=== PATIENT | female | born 1985 | race Caucasian/White ===

== ENCOUNTER 2016-05-31 18:13 | Emergency (ER) | payer MEDICAID ==
[2013-06-11 13:09] VITALS: BMI 27.4
[2016-05-31 18:52] LABS: BASOPHILS 0.1 % (0.0-2.0); EOSINOPHILS 0.1 % (0-7); HEMATOCRIT 37.7 % (36.0-48.0); HEMOGLOBIN 13.2 g/dL (12-16); IMMATURE GRANULOCYTES 0.4 % (0-5); LYMPHOCYTES 15.4 % (15-50); MCH 32.6 pg (26.0-34.0); MCV 93.1 fL (80.0-100.0); MONOCYTES 7.3 % (2-11); NEUTROPHILS 76.7 % (40-80); PLATELET COUNT 242 10x3/uL (130-400); RBC 4.05 10x6/uL (4.00-5.40); RDW 13.7 % (11.5-14.5); WBC 19.8 10x3/uL (4.8-10.8)
[2016-05-31 19:10] LABS: ALBUMIN 3.5 g/dL (3.4-5.0); ALKALINE PHOSPHATASE 107 U/L (46-116); ALT (SGPT) 152 U/L (10-68); BILIRUBIN - TOTAL 0.21 mg/dL (0.2-1.3); CALC OSMOLALITY 285 mosm/kg (275-300); CALCIUM 8.5 mg/dL (8.5-10.1); CARBON DIOXIDE 24.8 mmol/L (21.0-32.0); CHLORIDE - SERUM 108 mmol/L (98-107); CREATININE - SERUM 0.8 mg/dL (0.6-1.3); GLUCOSE 114 mg/dL (74-106); POTASSIUM - SERUM 3.9 mmol/L (3.5-5.1); PROTEIN - SERUM 6.5 g/dL (6.4-8.2); SODIUM 144 mmol/L (136-145); UREA NITROGEN 8 mg/dL (7-18); eGFR NON AFRICAN AMERICAN 89 mL/min (90-120)
[2016-05-31 19:13] LABS: TROPONIN-I < 0.017 ng/mL (0.000-0.060)
[2016-06-02 12:57] VITALS: BMI 32.6
== END 2016-05-31 21:31 | disposition home or self-care (01) ==
LOC: D.ER 18:13
PROVIDERS: Emergency Medicine
DX: R06.00 Dyspnea, unspecified (principal); F17.200 Nicotine dependence, unspecified, uncomplicated

== ENCOUNTER 2016-06-02 12:31 | Observation (INO) | payer MEDICAID ==
[~2016-06-02] VITALS: Ht 165.1 cm; Wt 89.1 kg
--- NOTE | 2016-06-02 08:30 | NUR ---
REC'D PATIENT FROM ALEXANDR OLSEN. PATIENT LYING IN BED IN SEMI FOWLERS. IS IN THE ROOM WITH. IS WANTING TO STAY THE NIGHT WITH HER. ALERT AND ORIENTED X4. SPEECH CLEAR AND APPROPRIATE. PAIN @ A 7/10 DUE TO MENTRUAL CRAMPS. DENIES HEARING AND VISION PROBLEMS @ THIS TIME. MUCUS MEMBRANES PINK AND MOIST. LUNGS DIMISHED IN LLL, RUL, AND SERGIO. ABD SOFT NON TENDER TO TOUCH. STATED LAST BM WAS 06/02/16. DENIES PAINFULL VOIDING. BLADDER NON-PALPABLE. UPPER AND LOWER EXTREMITIES FULL ROM. MUSCLE STRENGH 5/5. SKIN WARM, DRY, AND INTACT. HAS A 22G TO RIGHT HAND RUNNING @ 100ML AND IS PATENT. INTRUCTED PATIENT TO CALL IF NEEDED ANYTHING. PATIENT VERBALIZED UNDERSTANDING. BED LOW, LOCKED, CALL LIGHT IN REACH.
--- NOTE | 2016-06-02 12:50 | NUR ---
RECEIVED TO ROOM 2[address] FROM DIRECT ADMIT DR. GALVAN'S OFFICE. A/O X3. FAMILY AT BEDSIDE. SKIN INTACT WITHOUT REDNESS. LUNGS ARE VERY DIMINISHED TO RIGHT LOBES. REPORTS PRODUCTIVE COUGH WITH GRAYISH SPUTUM. DENIES NEEDS.
[2016-06-02] MEDS ORDERED: ADDERALL 20 MG20 M1 PO (12:53)
[2016-06-02] MEDS ORDERED: KLONOPIN1 MG PO (12:54)
[2016-06-02 12:57] VITALS: BP 142/93; Ht 165.1 cm; Wt 89.1 kg
--- NOTE | 2016-06-02 13:00 | NUR ---
IV SITED TO RIGHT HAND AFTER 4 ATTEMPTS WITH 22G. PATIENT TOLERATED WELL WITH FEW C/O PAIN OR DISCOMFORT.
[2016-06-02 13:17] LABS: BASOPHILS 0.1 % (0.0-2.0); EOSINOPHILS 0 % (0-7); HEMATOCRIT 36.5 % (36.0-48.0); HEMOGLOBIN 12.8 g/dL (12-16); IMMATURE GRANULOCYTES 0.7 % (0-5); LYMPHOCYTES 20.5 % (15-50); MCH 32.2 pg (26.0-34.0); MCHC 35.1 g/dL (31.0-37.0); MCV 91.9 fL (80.0-100.0); MONOCYTES 8.6 % (2-11); NEUTROPHILS 70.1 % (40-80); PLATELET COUNT 235 10x3/uL (130-400); RBC 3.97 10x6/uL (4.00-5.40); RDW 13.5 % (11.5-14.5); WBC 18.4 10x3/uL (4.8-10.8)
[2016-06-02 13:30] LABS: ALBUMIN 3.2 g/dL (3.4-5.0); ALKALINE PHOSPHATASE 85 U/L (46-116); ALT (SGPT) 134 U/L (10-68); CALC OSMOLALITY 275 mosm/kg (275-300); CARBON DIOXIDE 24.1 mmol/L (21.0-32.0); CHLORIDE - SERUM 106 mmol/L (98-107); CREATININE - SERUM 0.7 mg/dL (0.6-1.3); GLUCOSE 88 mg/dL (74-106); PROTEIN - SERUM 6.4 g/dL (6.4-8.2); SODIUM 140 mmol/L (136-145); UREA NITROGEN 7 mg/dL (7-18); eGFR NON AFRICAN AMERICAN > 90 mL/min (90-120)
[2016-06-02 13:32] LABS: POTASSIUM - SERUM 3.3 mmol/L (3.5-5.1)
--- NOTE | 2016-06-02 14:00 | NUR ---
ATE ALL OF LUNCH TRAY SERVED IN ROOM. DNEIES NEEDS.
--- NOTE | 2016-06-02 15:40 | NUR ---
Patient Name: ANJALI SAAVEDRA Admission Status: Elective Accout number: [id number] Admission Date: 06-02-2016 : 1985 Admission Diagnosis: Attending: MATTHEW Current LOS: 1 Anticipated DC Date: 06-04-2016 Planned Disposition: Home or Self Care [place]: [place] [employer] [place] Discharge Planning Comments: CM MET WITH PATIENT REGARDING D/C NEEDS AND PLANS. PATIENT STATED SHE LIVES WITH HER SPOUSE AND HE WILL DRIVE HER HOME AT DISCHARGE. THERE ARE 5 STEPS W/RAILS TO ENTER HOME AND NO STAIRS ONCE INSIDE. PATIENT IS INDEPENDENT WITH HER CARE AND DOES NOT HAVE ANY DME AT HOME. PATIENTS PCP IS DR. GALVAN AND PHARMACY IS [facility] [address]. PATIENT DENIED NEEDS FOR HOME HEALTH OR ANY OTHER NEEDS AT THIS TIME. CM WILL CONTINUE TO FOLLOW PATIENT WITH D/C NEEDS AND PLANS. PCP DR. MANDY [facility]- [phone] MINA SAAVEDRA (SPOUSE) [phone] Salesperson Handbags: Brittni Weeks Is the patient Alert and Oriented? Yes 0 * How many steps to enter\exit or inside your home? 5 w/rails 0 * PCP DR. GALVAN 0 * Pharmacy [facility] [address] 0 * Preadmission Environment Home with Family 0 * ADLs Independent 0 * Equipment None 0 * List name and contact numbers for known caregivers / representatives who currently or will assist patient after discharge: MINA SAAVEDRA (SPOUSE) [phone] 0 * Community resources currently utilized None 0 * Additional services required to return to the preadmission environment? Yes 0 * Can the patient safely return to the preadmission environment? Yes 0 * Has this patient been hospitalized within the prior 30 days at any hospital? No 0 Grand Total: 0
[2016-06-02 16:43] VITALS: BP 108/66
--- NOTE | 2016-06-02 19:17 | NUR ---
RESTING QUIETLY IN BED. FAMILY AT BEDSIDE. NO CHANGES NOTED. DENIES NEEDS.
[2016-06-02 20:00] VITALS: BP 124/62
[2016-06-02 21:53] VITALS: BP 124/62
[2016-06-02 22:02] LABS: APPEARANCE HAZY (CLEAR); COLOR RED (YELLOW); GLUCOSE NEGATIVE (NEGATIVE); KETONE NEGATIVE (NEGATIVE); LEUKOCYTE ESTERASE TRACE (NEGATIVE); NITRITE NEGATIVE (NEGATIVE); PROTEIN 1+ mg/dL (NEGATIVE); SPECIFIC GRAVITY 1.015 (1.005-1.020)
[2016-06-02 22:03] LABS: BILIRUBIN NEGATIVE (NEGATIVE); EPITHELIAL CELLS 0-5 /hpf (0-5); RED CELLS - URINE >50 /hpf (0-5); WHITE CELLS - URINE 0-5 /hpf (0-5)
[2016-06-02 22:04] LABS: BACTERIA FEW /hpf (NONE SEEN)
[2016-06-03] VITALS: BP 124/76
--- NOTE | 2016-06-03 00:14 | NUR ---
PATIENT CALLED ME INTO CHANGE THE TEMP IN HER ROOM. HER PUMP WAS ALSO BEEPING. IS RESTING IN BED IN LOW FOWLERS. HAS GONE HOME FOR THE NIGHT. INTRUCTED TO CALL IF NEEDED ANYTHING. PATIENT VERBALIZED UNDERSTANDING. BE LOW, LOCK, CALL LIGHT IN REACH.
[2016-06-03 01:11] VITALS: BP 124/76
--- NOTE | 2016-06-03 01:26 | NUR ---
RESTING COMFORTABLY IN BED. DENIED NEEDING ANYTHING @ THIS TIME. INTRUCTED TO CALL IF NEEDED ANYTHING. VERBALIZED UNDERSTANDING. BED LOW, LOCKED, CALL LIGHT IN REACH.
[2016-06-03 04:18] VITALS: BP 122/66
--- NOTE | 2016-06-03 04:22 | NUR ---
SLEEPING IN LOW FOWLERS IN BED. TOOK VITALS. INTRUCTED PATIENT TO CALL IF NEEDED ANYTHING. PATIENT VERBLAZED UNDERSTANDING. BED LOW, LOCKED, CALL LIGHT IN REACH.
[2016-06-03 05:29] LABS: BASOPHILS 0.1 % (0.0-2.0); EOSINOPHILS 0.1 % (0-7); HEMATOCRIT 36.2 % (36.0-48.0); HEMOGLOBIN 12.2 g/dL (12-16); IMMATURE GRANULOCYTES 0.7 % (0-5); LYMPHOCYTES 41.8 % (15-50); MCH 31.5 pg (26.0-34.0); MCHC 33.7 g/dL (31.0-37.0); MCV 93.5 fL (80.0-100.0); MEAN PLATELET VOLUME 12.1 fL (7.4-10.4); MONOCYTES 7.3 % (2-11); PLATELET COUNT 195 10x3/uL (130-400); RBC 3.87 10x6/uL (4.00-5.40); RDW 13.7 % (11.5-14.5)
[2016-06-03 05:30] LABS: WBC 10.8 10x3/uL (4.8-10.8)
[2016-06-03 05:46] LABS: ALKALINE PHOSPHATASE 73 U/L (46-116); ALT (SGPT) 121 U/L (10-68); BILIRUBIN - TOTAL 0.18 mg/dL (0.2-1.3); CALC OSMOLALITY 288 mosm/kg (275-300); CALCIUM 7.7 mg/dL (8.5-10.1); CHLORIDE - SERUM 110 mmol/L (98-107); CREATININE - SERUM 0.8 mg/dL (0.6-1.3); GLUCOSE 118 mg/dL (74-106); POTASSIUM - SERUM 3.4 mmol/L (3.5-5.1); PROTEIN - SERUM 5.9 g/dL (6.4-8.2); SODIUM 145 mmol/L (136-145); eGFR NON AFRICAN AMERICAN 89 mL/min (90-120)
[2016-06-03 05:51] LABS: UREA NITROGEN 9 mg/dL (7-18)
--- NOTE | 2016-06-03 08:18 | NUR ---
REPORT RECEIVED FROM ALEXANDR WELCH.
[2016-06-03 08:30] VITALS: BP 120/76
--- NOTE | 2016-06-03 09:21 | NUR ---
ASSESSMENT COMPLETED. AM MEDS ADMINISTERED. IN ROOM. CALL LIGHT IN REACH. WILL CONTINUE WITH PLAN OF CARE.
--- NOTE | 2016-06-03 09:57 | NUR ---
AMBULATING IN HALLS WITH . TOLERATING WELL.
--- NOTE | 2016-06-03 11:15 | NUR ---
AMBULATING IN HALLWAY INDEPENDENTLY AT THIS TIME. STATES, "I AM READY TO DISCHARGE, I NEED A CIGARETTE." DENIES NEEDS AT THIS TIME. NO S/S OF DISTRESS VISUALIZED. WILL CONTINUE WITH PLAN OF CARE.
--- NOTE | 2016-06-03 11:32 | NUR ---
EXPLAINED TO PATIENT THAT WHEN DOING TRYING TO OBTAIN A SPUTUM CULTURE TO MAKE SURE THAT IT IS NOT JUST SPIT, BUT IT NEEDS TO BE SPUTUM FROM DEEP DOWN. VERBALIZED UNDERSTANDING.
[2016-06-03 12:28] VITALS: BP 136/85
[2016-06-03] MEDS ORDERED: ZITHROMAX250 MG PO (14:25)
--- NOTE | 2016-06-03 14:32 | NUR ---
IV ABX PER ORDER. CALL LIGHT IN REACH.
--- NOTE | 2016-06-03 15:31 | NUR ---
CM REASSESSMENT NOTE: PATIENT IS DISCHARGING HOME TODAY-DENIED HOME HEALTH OR ANY OTHER NEEDS. SPOUSE IS DRIVING PATIENT HOME.
[2016-06-03 16:10] VITALS: BP 138/78
--- NOTE | 2016-06-03 16:55 | NUR ---
DC INSTRUCTIONS EXPLAINED TO PATIENT AND . BOTH VERBALIZED UNDERSTANDING. DC'D TO VEHICLE VIA WC WITH .
== END 2016-06-03 16:55 | disposition home or self-care (01) ==
LOC: D.MS 12:31 → OBSVTIME 12:50 → D.MS 06-03 16:55
PROVIDERS: ADMIT Family Medicine
DX: J20.9 Acute bronchitis, unspecified (principal); K02.9 Dental caries, unspecified; F17.200 Nicotine dependence, unspecified, uncomplicated

== ENCOUNTER 2016-10-26 11:12 | Emergency (ER) | payer MEDICAID ==
[2016-06-02 12:57] VITALS: BMI 32.6
[~2016-10-26 11:12] MED LIST: ADDERALL 20 MG20 M1 PO; KLONOPIN1 MG PO; ZITHROMAX250 MG PO
== END 2016-10-26 12:57 | disposition home or self-care (01) ==
LOC: D.ER 11:12
DX: J02.9 Acute pharyngitis, unspecified (principal); H92.09 Otalgia, unspecified ear; R09.89 Other specified symptoms and signs involving the circulatory and respiratory systems; F17.200 Nicotine dependence, unspecified, uncomplicated

== ENCOUNTER 2017-01-05 08:54 | Emergency (ER) | payer MEDICAID ==
[2016-06-02 12:57] VITALS: BMI 32.6
[2017-01-05 09:30] LABS: BASOPHILS 0.3 % (0-2); EOSINOPHILS 1.6 % (0-7); HEMATOCRIT 41.5 % (36.0-48.0); HEMOGLOBIN 14.3 g/dL (12-16); IMMATURE GRANULOCYTES 0.3 % (0-5); LYMPHOCYTES 30.9 % (15-50); MCH 32.2 pg (26.0-34.0); MCHC 34.5 g/dL (31.0-37.0); MCV 93.5 fL (80.0-100.0); MEAN PLATELET VOLUME 11.7 fL (7.4-10.4); MONOCYTES 7.2 % (2-11); NEUTROPHILS 59.7 % (40-80); RBC 4.44 10x6/uL (4.00-5.40); RDW 14.4 % (11.5-14.5); WBC 11.9 10x3/uL (4.8-10.8)
[2017-01-05 09:34] LABS: PLATELET COUNT 272 10x3/uL (130-400)
[2017-01-05 09:42] LABS: HCG SERUM NEGATIVE (NEGATIVE)
[2017-01-05 09:44] LABS: APPEARANCE HAZY (CLEAR); BILIRUBIN NEGATIVE (NEGATIVE); COLOR YELLOW (YELLOW); GLUCOSE NEGATIVE (NEGATIVE); KETONE NEGATIVE (NEGATIVE); NITRITE NEGATIVE (NEGATIVE); PROTEIN NEGATIVE (NEGATIVE); SPECIFIC GRAVITY 1.025 (1.005-1.020); UROBILINOGEN NORMAL (NORMAL)
[2017-01-05 09:52] LABS: ALBUMIN 3.8 g/dL (3.4-5.0); ALKALINE PHOSPHATASE 73 U/L (46-116); ALT (SGPT) 23 U/L (10-68); BILIRUBIN - TOTAL 0.24 mg/dL (0.2-1.3); CALC OSMOLALITY 276 mosm/kg (275-300); CALCIUM 9.2 mg/dL (8.5-10.1); CARBON DIOXIDE 28.3 mmol/L (21.0-32.0); CHLORIDE - SERUM 105 mmol/L (98-107); CREATININE - SERUM 0.7 mg/dL (0.6-1.3); GLUCOSE 81 mg/dL (74-106); POTASSIUM - SERUM 4.1 mmol/L (3.5-5.1); PROTEIN - SERUM 7.1 g/dL (6.4-8.2); SODIUM 139 mmol/L (136-145); UREA NITROGEN 12 mg/dL (7-18); eGFR NON AFRICAN AMERICAN > 90 mL/min (90-120)
[2017-02-01] MEDS ORDERED: SKELAXIN800 MG PO (11:12)
[2017-02-01] MEDS ORDERED: PERCOCET 5-3251 TAB PO (11:12)
[2017-02-01] MEDS ORDERED: CYCLOBENZAPRINE10 MG PO (11:12)
[2017-02-01] MEDS ORDERED: ZOFRAN4 MG PO (11:13)
== END 2017-01-05 12:36 | disposition home or self-care (01) ==
LOC: D.ER 08:54
PROVIDERS: Emergency Medicine
DX: N83.209 Unspecified ovarian cyst, unspecified side (principal); F17.200 Nicotine dependence, unspecified, uncomplicated

== ENCOUNTER 2017-01-17 20:11 | Emergency (ER) | payer MEDICAID ==
[2016-06-02 12:57] VITALS: BMI 32.6
[2017-02-01] MEDS ORDERED: CYCLOBENZAPRINE10 MG PO (11:12)
[2017-02-01] MEDS ORDERED: PERCOCET 5-3251 TAB PO (11:12)
[2017-02-01] MEDS ORDERED: SKELAXIN800 MG PO (11:12)
[2017-02-01] MEDS ORDERED: ZOFRAN4 MG PO (11:13)
== END 2017-01-17 20:12 | disposition home or self-care (01) ==
LOC: D.ER 20:11
DX: Z02.9 Encounter for administrative examinations, unspecified (principal)

== ENCOUNTER 2017-01-30 17:02 | Emergency (ER) | payer MEDICAID ==
[2016-06-02 12:57] VITALS: BMI 32.6
[2017-01-30 18:11] LABS: BASOPHILS 0.3 % (0-2); EOSINOPHILS 0.9 % (0-7); HEMATOCRIT 38.9 % (36.0-48.0); HEMOGLOBIN 13.4 g/dL (12-16); IMMATURE GRANULOCYTES 0.2 % (0-5); LYMPHOCYTES 26.5 % (15-50); MCH 32.4 pg (26.0-34.0); MCHC 34.4 g/dL (31.0-37.0); MEAN PLATELET VOLUME 11.9 fL (7.4-10.4); MONOCYTES 8.3 % (2-11); NEUTROPHILS 63.8 % (40-80); PLATELET COUNT 282 10x3/uL (130-400); RBC 4.14 10x6/uL (4.00-5.40); RDW 14.2 % (11.5-14.5); WBC 11.4 10x3/uL (4.8-10.8)
[2017-01-30 19:02] LABS: APPEARANCE CLEAR (CLEAR); BILIRUBIN NEGATIVE (NEGATIVE); COLOR YELLOW (YELLOW); GLUCOSE NEGATIVE (NEGATIVE); KETONE NEGATIVE (NEGATIVE); NITRITE NEGATIVE (NEGATIVE); PROTEIN NEGATIVE (NEGATIVE); SPECIFIC GRAVITY 1.005 (1.005-1.020); UROBILINOGEN NORMAL (NORMAL)
[2017-01-30 19:12] LABS: UDS - AMPHET NEGATIVE QUAL (NEGATIVE); UDS - BARB NEGATIVE QUAL (NEGATIVE); UDS - BENZO NEGATIVE QUAL (NEGATIVE); UDS - COCAINE NEGATIVE QUAL (NEGATIVE); UDS - OPIATE NEGATIVE QUAL (NEGATIVE); UDS - PCP NEGATIVE QUAL (NEGATIVE); UDS - THC NEGATIVE QUAL (NEGATIVE)
[2017-02-01] MEDS ORDERED: PERCOCET 5-3251 TAB PO (11:12)
[2017-02-01] MEDS ORDERED: SKELAXIN800 MG PO (11:12)
[2017-02-01] MEDS ORDERED: CYCLOBENZAPRINE10 MG PO (11:12)
[2017-02-01] MEDS ORDERED: ZOFRAN4 MG PO (11:13)
== END 2017-01-30 20:25 | disposition home or self-care (01) ==
LOC: D.ER 17:02
PROVIDERS: Emergency Medicine; Nurse Practitioner Family
DX: N83.209 Unspecified ovarian cyst, unspecified side (principal); R10.2 Pelvic and perineal pain

== ENCOUNTER 2017-02-02 05:18 | Day surgery (SDC) | payer MEDICAID ==
[2017-02-01 11:40] LABS: BASOPHILS 0.4 % (0-2); EOSINOPHILS 1.5 % (0-7); HEMATOCRIT 41.1 % (36.0-48.0); HEMOGLOBIN 14.1 g/dL (12-16); IMMATURE GRANULOCYTES 0.3 % (0-5); LYMPHOCYTES 36.2 % (15-50); MCH 32.1 pg (26.0-34.0); MCHC 34.3 g/dL (31.0-37.0); MCV 93.6 fL (80.0-100.0); MEAN PLATELET VOLUME 11.6 fL (7.4-10.4); NEUTROPHILS 55.6 % (40-80); PLATELET COUNT 277 10x3/uL (130-400); RBC 4.39 10x6/uL (4.00-5.40); WBC 10.9 10x3/uL (4.8-10.8)
[~2017-02-02 05:18] MED LIST changes: +CYCLOBENZAPRINE10 MG PO; +PERCOCET 5-3251 TAB PO; +SKELAXIN800 MG PO; +ZOFRAN4 MG PO
[2017-02-02 11:04] VITALS: BP 117/77; BMI 32.1
[2017-02-02 11:11] LABS: HCG URINE NEGATIVE (NEGATIVE)
--- NOTE | 2017-02-02 16:07 | NUR ---
1545 DISCHARGE INSTRUCTIONS COMPLETE. PRESCRIPTION FOR MOTRIN AND PERCOCET GIVEN. PT HAS NO QUESTIONS OR CONCERNS AT THIS TIME. ESCORTED OUT BY MUKESH STRANGE.
--- NOTE | 2017-02-21 07:56 | OP ---
PATIENT NAME: ANJALI SAAVEDRA MEDICAL RECORD: [id number] :84 LOCATION:D.OPS ADMISSION DATE: SURGEON: ABIODUN RICKETTS MD DATE OF OPERATION: 02/02/2017 PREOPERATIVE DIAGNOSES: 1. Chronic pelvic pain. 2. Chronic dysuria. POSTOPERATIVE DIAGNOSES: 1. Chronic pelvic pain. 2. Chronic dysuria. 3. Interstitial cystitis. 4. Endometriosis. PROCEDURE: 1. Diagnostic laparoscopy. 2. Cystoscopy with hydrodistention. SURGEON: Abiodun Ricketts MD ANESTHESIOLOGIST: Aman Calle MD ANESTHESIA: General anesthetic with endotracheal intubation. FINDINGS: Boggy uterus with evidence of endometriosis in the right cul-de-sac. At the time of cystoscopy, the urethral meatus is unremarkable without evidence of exudate upon massaging periurethral glands. No fronds was present at the UV junction. At the time of hydrodistention, bloody effluent is noted at the close of the removal of the distention media and petechiae and glomerulations were seen throughout. ESTIMATED BLOOD LOSS: Less than or equal to 50 cc. FLUIDS: 1 liter lactated Ringer's. URINE OUTPUT: Quantity sufficient cath prior to the procedure. COMPLICATIONS: None. INDICATIONS: The patient is a 31-year-old female with worsening pelvic pain. The patient also reports nocturia, dysuria. The patient is consented for diagnostic laparoscopy and cystoscopy. DESCRIPTION OF PROCEDURE: After informed consent was assured, the patient was taken to the operating room, anesthetic was obtained without difficulty. She is placed in Jovany stirrups and prepped and draped in usual sterile fashion. Incision was made at the umbilicus to accommodate a 5-mm trocar. This is inserted and what was originally thought to be adhesions is encountered. A Dameon was used to enter the abdomen and upon inspection, the abdominal wall was free of adhesions. The pneumoperitoneum was developed. The patient is in Trendelenburg position and the accessory ports were placed above the symphysis. Through this, a blunt probe was inserted and the bowel swept free of the pelvis. The cul-de-sac was inspected and fluid is noted there and this is removed. There is some evidence of active endometriosis on the right side. The left side OPERATIVE REPORT [id number] ANJALI SAAVEDRA has engorged vessels. Uterus is noted to be boggy. At this point, the pneumoperitoneum was released. The trocars were removed and the fascia of the primary site was closed with 0 Vicryl and all skin incisions closed with 4-0 Monocryl. Dermabond was applied. The legs positioned and attention is directed to the perineum. Using a 70-degree cystoscope, the urethra is cannulized and inspected. The bladder was distended at 80 cm of water. After the distention media was completed, it is removed with noted bloody fluid at the close. Reestablishment of the cystoscopy reveals petechiae and glomerulations throughout. The effluent is now removed and 40,000 units of heparin and 10 cc of lidocaine is now instilled. Sponge, lap and needle counts are correct times 2 at the close of this procedure. TRANSINT:[id number] Voice Confirmation ID: [id number] DOCUMENT ID: [id number] 02/17/2017 Edited to insert procedure line, dmm. ABIODUN RICKETTS MD at 0756 CC: [id number] DICTATION DATE: 02/02/17 1402 MARINE METEOROLOGIST: 02/02/17 1741 [facility] 02/02/17 [facility] [address] [place] [address]
== END 2017-02-02 15:50 | disposition home or self-care (01) ==
LOC: D.OPS 05:18 → D.PAN 12:00 → D.OPS 15:50 → D.PAN 02-09 12:00 → D.OPS 02-09 12:00
PROVIDERS: Obstetrics & Gynecology
DX: N80.3 Endometriosis of pelvic peritoneum (principal); N30.10 Interstitial cystitis (chronic) without hematuria; R35.1 Nocturia; R30.0 Dysuria; Z01.812 Encounter for preprocedural laboratory examination

== ENCOUNTER 2017-03-21 17:45 | Emergency (ER) | payer MEDICAID ==
[2017-03-21 19:43] LABS: APPEARANCE CLEAR (CLEAR); COLOR YELLOW (YELLOW)
[2017-03-21 19:44] LABS: BILIRUBIN NEGATIVE (NEGATIVE); GLUCOSE NEGATIVE (NEGATIVE); KETONE NEGATIVE (NEGATIVE); NITRITE NEGATIVE (NEGATIVE); PROTEIN NEGATIVE (NEGATIVE); SPECIFIC GRAVITY 1.015 (1.005-1.020); UROBILINOGEN NORMAL (NORMAL)
[2017-03-21 20:10] LABS: BASOPHILS 0.2 % (0-2); EOSINOPHILS 0.9 % (0-7); HEMATOCRIT 44.1 % (36.0-48.0); HEMOGLOBIN 15.7 g/dL (12-16); IMMATURE GRANULOCYTES 0.4 % (0-5); LYMPHOCYTES 25.5 % (15-50); MCH 32.9 pg (26.0-34.0); MCHC 35.6 g/dL (31.0-37.0); MCV 92.5 fL (80.0-100.0); MEAN PLATELET VOLUME 11.7 fL (7.4-10.4); MONOCYTES 5.8 % (2-11); NEUTROPHILS 67.2 % (40-80); PLATELET COUNT 299 10x3/uL (130-400); RBC 4.77 10x6/uL (4.00-5.40); RDW 14.9 % (11.5-14.5); WBC 17.5 10x3/uL (4.8-10.8)
[2017-03-21 20:28] LABS: HCG SERUM NEGATIVE (NEGATIVE)
== END 2017-03-21 21:39 | disposition home or self-care (01) ==
LOC: D.ER 17:45
PROVIDERS: Emergency Medicine
DX: R10.2 Pelvic and perineal pain (principal)

== ENCOUNTER 2017-03-30 13:37 | Emergency (ER) | payer MEDICAID | END 2017-03-30 15:10 | disposition home or self-care (01) | LOC: D.ER 13:37 | DX: N80.9 Endometriosis, unspecified (principal) ==

== ENCOUNTER 2017-04-20 08:41 | Emergency (ER) | payer MEDICAID ==
[2017-04-20 09:06] LABS: APPEARANCE CLEAR (CLEAR); BILIRUBIN NEGATIVE (NEGATIVE); COLOR YELLOW (YELLOW); GLUCOSE NEGATIVE (NEGATIVE); KETONE NEGATIVE (NEGATIVE); NITRITE NEGATIVE (NEGATIVE); PROTEIN NEGATIVE (NEGATIVE); SPECIFIC GRAVITY 1.005 (1.005-1.020); UROBILINOGEN NORMAL (NORMAL)
== END 2017-04-20 09:54 | disposition home or self-care (01) ==
LOC: D.ER 08:41
PROVIDERS: Emergency Medicine
DX: R10.2 Pelvic and perineal pain (principal); F17.200 Nicotine dependence, unspecified, uncomplicated

== ENCOUNTER 2017-04-30 13:39 | Emergency (ER) | payer MEDICAID | END 2017-04-30 16:15 | disposition home or self-care (01) | LOC: D.ER 13:39 | DX: G43.909 Migraine, unspecified, not intractable, without status migrainosus (principal); N80.9 Endometriosis, unspecified ==

== ENCOUNTER 2017-05-12 11:37 | Observation (INO) | payer MEDICAID ==
[~2017-05-12] VITALS: Ht 165.1 cm; Wt 94.8 kg
--- NOTE | ~2017-05-12 | CN ---
PATIENT NAME:ANJALI SAAVEDRA MEDICAL RECORD: [id number] : 84 LOCATION:D.[facility] D.2108 ADMIT DATE: 05/12/17 ACCOUNT: [id number] CONSULTING PHYSICIAN: KATHARINE ERNANDEZ MD REFERRING PHYSICIAN: YANI GALVAN DO DATE OF CONSULTATION: 05/12/2017 CONSULT REQUESTING PHYSICIAN: Yani Galvan DO REASON FOR CONSULTATION: Acute chronic obstructive pulmonary disease exacerbation and asthmatic bronchitis. HISTORY OF PRESENT ILLNESS: Ms. Saavedra is a 31-year-old female who was sick for the last few days. She was treated with acute bronchitis without any benefit. She was still coughing, hoarseness, shortness of breath and the patient was admitted to the hospital for further care. REVIEW OF SYSTEMS: Mainly in the history of present illness. PAST MEDICAL HISTORY: 1. History of pneumonia. 2. History of chickenpox and measles. PAST SURGICAL HISTORY: 1. She has a cholecystectomy. 2. Tubal ligation. ALLERGIES: She is allergic to PENICILLIN AND LEVAQUIN. PERSONAL AND SOCIAL HISTORY: The patient still continued to smoke. She is a nondrinker. FAMILY HISTORY: Negative for lung disease. PHYSICAL EXAMINATION: GENERAL: Now, the patient is lying comfortably in bed. She is not in acute distress. VITAL SIGNS: The blood pressure is 120/78, pulse is 82, respirations 22, temperature 98.2, SpO2 is 94% on room air. HEENT: Conjunctivae is pink, sclerae nonicteric. NECK: Supple, no JVD. CHEST: Excursion is minimal on both sides. There are wheezes on forceful expiration. HEART: Rhythm regular, normal sound, no murmur. ABDOMEN: Soft. Bowel sounds present. No hepatosplenomegaly. RECTAL: Deferred. EXTREMITIES: No cyanosis, no clubbing, no pedal edema. SKIN: Warm, normal turgor. CENTRAL NERVOUS SYSTEM: The patient is awake and alert. There are no obvious cranial nerve abnormality. The gait was not tested. CHEST RADIOGRAPH: There is bilateral granulomatous calcified granulomas. OTHER LABORATORY DATA: CBC: The WBC is 18.4, hemoglobin 14.9, hematocrit 42.7, the platelet count 305. Chemistry: Sodium 138, potassium 4.2, BUN is 12, CONSULT REPORT [id number] ANJALI SAAVEDRA creatinine is 1. IMPRESSION: 1. Acute exacerbation of chronic obstructive pulmonary disease. 2. Asthmatic bronchitis. 3. Acute cough. 4. Leukocytosis. 5. Tobacco dependence syndrome. 6. Old granulomatous disease, most likely secondary to chickenpox. RECOMMENDATION: 1. Albuterol and ipratropium nebulizer. 2. Brovana and budesonide nebulizer. 3. Zithromax and Rocephin IV. 4. Singulair 10 mg a day. 5. Mucinex DM 2 tablets b.i.d., Tessalon Perles 200 mg t.i.d., and then follow up labs and chest radiograph. 6. The patient was counseled to quit smoking. Dr. Galvan, thank you for involving me in the care of Ms. Saavedra. TRANSINT:[id number] Voice Confirmation ID: [id number] DOCUMENT ID: [id number] KATHARINE ERNANDEZ MD CC: YANI GALVAN DO [id number] DICTATION DATE: 05/12/17 184 COMPARATIVE SOCIOLOGY PROFESSOR: 05/12/171915 ADM IN [facility] [address] [place] [address]
[2017-05-12] MEDS ORDERED: METHADONE5 MG PO (12:34)
[2017-05-12] MEDS ORDERED: TUSSIONEX PENN473 ML PO (12:34)
[2017-05-12] MEDS ORDERED: MAXALT10 MG PO (12:36)
[2017-05-12] MEDS ORDERED: IBUPROFEN800 MG PO (12:37)
[2017-05-12 12:52] VITALS: BP 143/94; Ht 165.1 cm; Wt 94.8 kg
[2017-05-12 12:54] LABS: BASOPHILS 0.2 % (0-2); EOSINOPHILS 0.2 % (0-7); HEMATOCRIT 42.7 % (36.0-48.0); HEMOGLOBIN 14.9 g/dL (12-16); IMMATURE GRANULOCYTES 1.7 % (0-5); LYMPHOCYTES 21.7 % (15-50); MCH 32.7 pg (26.0-34.0); MCHC 34.9 g/dL (31.0-37.0); MCV 93.8 fL (80.0-100.0); MEAN PLATELET VOLUME 11.4 fL (7.4-10.4); MONOCYTES 6.7 % (2-11); NEUTROPHILS 69.5 % (40-80); PLATELET COUNT 305 10x3/uL (130-400); RBC 4.55 10x6/uL (4.00-5.40); RDW 14.5 % (11.5-14.5); WBC 18.4 10x3/uL (4.8-10.8)
[2017-05-12 13:02] LABS: ALBUMIN 3.7 g/dL (3.4-5.0); ANION GAP 12.6 mmol/L (8-16); BILIRUBIN - TOTAL 0.15 mg/dL (0.2-1.3); CALCIUM 8.6 mg/dL (8.5-10.1); CARBON DIOXIDE 26.6 mmol/L (21.0-32.0); POTASSIUM - SERUM 4.2 mmol/L (3.5-5.1); PROTEIN - SERUM 7.3 g/dL (6.4-8.2)
[2017-05-12 13:04] LABS: C-REACTIVE PROTEIN 0.2 mg/dL (0.0-0.9)
[2017-05-12 15:19] VITALS: BP 120/78
[2017-05-12 20:00] VITALS: BP 133/75
[2017-05-13] VITALS: BP 114/70
[2017-05-13 04:00] VITALS: BP 116/78
[2017-05-13 04:03] LABS: BASOPHILS 0.1 % (0-2); EOSINOPHILS 0 % (0-7); HEMOGLOBIN 14.5 g/dL (12-16); IMMATURE GRANULOCYTES 2.2 % (0-5); LYMPHOCYTES 14.3 % (15-50); MCH 32.5 pg (26.0-34.0); MCHC 34.5 g/dL (31.0-37.0); MCV 94.2 fL (80.0-100.0); MEAN PLATELET VOLUME 11.5 fL (7.4-10.4); MONOCYTES 6.6 % (2-11); NEUTROPHILS 76.8 % (40-80); PLATELET COUNT 290 10x3/uL (130-400); RBC 4.46 10x6/uL (4.00-5.40); RDW 14.4 % (11.5-14.5); WBC 21.2 10x3/uL (4.8-10.8)
[2017-05-13 04:15] LABS: ALBUMIN 3.4 g/dL (3.4-5.0); ALKALINE PHOSPHATASE 101 U/L (46-116); ALT (SGPT) 79 U/L (10-68); CALC OSMOLALITY 280 mosm/kg (275-300); CALCIUM 8.1 mg/dL (8.5-10.1); CARBON DIOXIDE 28.7 mmol/L (21.0-32.0); CHLORIDE - SERUM 105 mmol/L (98-107); CREATININE - SERUM 0.9 mg/dL (0.6-1.3); GLUCOSE 138 mg/dL (74-106); POTASSIUM - SERUM 4.1 mmol/L (3.5-5.1); PROTEIN - SERUM 6.7 g/dL (6.4-8.2); SODIUM 140 mmol/L (136-145); UREA NITROGEN 12 mg/dL (7-18); eGFR NON AFRICAN AMERICAN 77 mL/min (90-120)
[2017-05-13 05:07] LABS: EOSINOPHILS 1 % (0-7); LYMPHOCYTES 13 % (15-50); MONOCYTES 6 % (2-11); NEUTROPHILS 80 % (40-80); PLATELET ESTIMATE NORMAL
[2017-05-13 09:10] VITALS: BP 130/81
[2017-05-13 12:55] VITALS: BP 124/69
[2017-05-13 18:30] VITALS: BP 126/76
[2017-05-13 20:54] VITALS: BP 130/83
[2017-05-14 06:52] VITALS: BP 151/97
[2017-05-14 10:06] VITALS: BP 125/63
[2017-05-14] MEDS ORDERED: OMNICEF300 MG PO (10:09)
[2017-05-14] MEDS ORDERED: ZITHROMAX250 MG PO (10:10)
[2017-05-14] MEDS ORDERED: PREDNISONE20 MG PO (10:12)
[2017-05-14] MEDS ORDERED: SINGULAIR10 MG PO (10:16)
== END 2017-05-14 12:26 | disposition home or self-care (01) ==
LOC: D.SDCHOLD 11:37 → D.M2 11:37 → OBSVTIME 11:39 → D.M2 12:09
PROVIDERS: Family Medicine
DX: J20.9 Acute bronchitis, unspecified (principal); J44.0 Chronic obstructive pulmonary disease with (acute) lower respiratory infection; J44.1 Chronic obstructive pulmonary disease with (acute) exacerbation; F17.200 Nicotine dependence, unspecified, uncomplicated

== ENCOUNTER 2017-07-15 14:19 | Emergency (ER) | payer MEDICAID ==
[2017-05-12 12:52] VITALS: BMI 34.0
[~2017-07-15 14:19] MED LIST changes: +IBUPROFEN800 MG PO; +MAXALT10 MG PO; +METHADONE5 MG PO; +OMNICEF300 MG PO; +PREDNISONE20 MG PO; +SINGULAIR10 MG PO; +TUSSIONEX PENN473 ML PO
== END 2017-07-15 17:12 | disposition home or self-care (01) ==
LOC: D.ER 14:19
DX: G89.18 Other acute postprocedural pain (principal); R39.82 Chronic bladder pain

== ENCOUNTER 2017-08-21 18:35 | Emergency (ER) | payer MEDICAID ==
[2017-05-12 12:52] VITALS: BMI 34.0
[2017-08-21 19:11] LABS: HCG URINE NEGATIVE (NEGATIVE)
== END 2017-08-21 19:28 | disposition home or self-care (01) ==
LOC: D.ER 18:35
PROVIDERS: Family Medicine
DX: S29.012A Strain of muscle and tendon of back wall of thorax, initial encounter (principal); X58.XXXA Exposure to other specified factors, initial encounter; Y93.89 Activity, other specified; Y92.89 Other specified places as the place of occurrence of the external cause; F17.200 Nicotine dependence, unspecified, uncomplicated

== ENCOUNTER 2017-08-21 20:57 | Emergency (ER) | payer MEDICAID ==
[2017-05-12 12:52] VITALS: BMI 34.0
== END 2017-08-21 21:54 | disposition home or self-care (01) ==
LOC: D.ER 20:57
DX: S29.012A Strain of muscle and tendon of back wall of thorax, initial encounter (principal); X58.XXXA Exposure to other specified factors, initial encounter; Y93.83 Activity, rough housing and horseplay; Y92.019 Unspecified place in single-family (private) house as the place of occurrence of the external cause

== ENCOUNTER 2017-09-07 07:48 | Emergency (ER) | payer MEDICAID ==
[~2017-09-07] VITALS: Ht 165.1 cm; Wt 95.5 kg
[2017-09-07 08:01] VITALS: Ht 165.1 cm; Wt 95.5 kg
[2017-09-07 08:32] LABS: APPEARANCE HAZY (CLEAR); BILIRUBIN NEGATIVE (NEGATIVE); COLOR YELLOW (YELLOW); GLUCOSE NEGATIVE (NEGATIVE); KETONE NEGATIVE (NEGATIVE); NITRITE NEGATIVE (NEGATIVE); PROTEIN NEGATIVE (NEGATIVE); UROBILINOGEN NORMAL (NORMAL)
[2017-09-07 08:39] LABS: BASOPHILS 0.2 % (0-2); EOSINOPHILS 0.9 % (0-7); HEMATOCRIT 42.2 % (36.0-48.0); HEMOGLOBIN 15.2 g/dL (12-16); IMMATURE GRANULOCYTES 0.5 % (0-5); LYMPHOCYTES 15.9 % (15-50); MCH 33.3 pg (26.0-34.0); MCV 92.3 fL (80.0-100.0); MONOCYTES 6.9 % (2-11); NEUTROPHILS 75.6 % (40-80); PLATELET COUNT 261 10x3/uL (130-400); RBC 4.57 10x6/uL (4.00-5.40); RDW 14.1 % (11.5-14.5); WBC 19.4 10x3/uL (4.8-10.8)
[2017-09-07 08:45] LABS: ALBUMIN 3.4 g/dL (3.4-5.0); ALKALINE PHOSPHATASE 136 U/L (46-116); ALT (SGPT) 122 U/L (10-68); BILIRUBIN - TOTAL 0.25 mg/dL (0.2-1.3); CALC OSMOLALITY 278 mosm/kg (275-300); CALCIUM 9.3 mg/dL (8.5-10.1); CARBON DIOXIDE 25.1 mmol/L (21.0-32.0); CHLORIDE - SERUM 107 mmol/L (98-107); CREATININE - SERUM 0.9 mg/dL (0.6-1.3); POTASSIUM - SERUM 3.6 mmol/L (3.5-5.1); PROTEIN - SERUM 7.2 g/dL (6.4-8.2); SODIUM 141 mmol/L (136-145); UREA NITROGEN 11 mg/dL (7-18); eGFR NON AFRICAN AMERICAN 76 mL/min (90-120)
[2017-09-07 08:47] LABS: GLUCOSE 89 mg/dL (74-106)
[2017-09-07 08:52] LABS: HCG - QUANTITATIVE (MATERNAL) 0 mIU/mL
[2017-09-07 11:00] VITALS: BP 129/81
[2017-09-27] MEDS ORDERED: HYDROCODON-ACE1 EAC7 PO (08:16)
== END 2017-09-07 11:03 | disposition home or self-care (01) ==
LOC: D.ER 07:48
PROVIDERS: Family Medicine
DX: R10.9 Unspecified abdominal pain (principal); F17.200 Nicotine dependence, unspecified, uncomplicated

== ENCOUNTER 2017-09-12 13:02 | Emergency (ER) | payer MEDICAID ==
[~2017-09-12] VITALS: Ht 165.1 cm; Wt 96.8 kg
[2017-09-12 13:22] VITALS: Ht 165.1 cm; Wt 96.8 kg
[2017-09-12 17:02] LABS: APPEARANCE CLEAR (CLEAR); BILIRUBIN NEGATIVE (NEGATIVE); COLOR YELLOW (YELLOW); GLUCOSE NEGATIVE (NEGATIVE); KETONE NEGATIVE (NEGATIVE); NITRITE NEGATIVE (NEGATIVE); PROTEIN NEGATIVE (NEGATIVE); SPECIFIC GRAVITY 1.015 (1.005-1.020); UROBILINOGEN NORMAL (NORMAL)
[2017-09-12 17:12] LABS: HCG URINE NEGATIVE (NEGATIVE)
[2017-09-12 17:51] LABS: BASOPHILS 0.2 % (0-2); HEMATOCRIT 42.1 % (36.0-48.0); HEMOGLOBIN 14.8 g/dL (12-16); IMMATURE GRANULOCYTES 0.3 % (0-5); MCH 32.7 pg (26.0-34.0); MCHC 35.2 g/dL (31.0-37.0); MCV 92.9 fL (80.0-100.0); MEAN PLATELET VOLUME 11.6 fL (7.4-10.4); MONOCYTES 6.2 % (2-11); NEUTROPHILS 61.3 % (40-80); PLATELET COUNT 239 10x3/uL (130-400); RBC 4.53 10x6/uL (4.00-5.40); RDW 14.4 % (11.5-14.5); WBC 12.8 10x3/uL (4.8-10.8)
[2017-09-12 18:02] LABS: ALBUMIN 3.6 g/dL (3.4-5.0); ALKALINE PHOSPHATASE 122 U/L (46-116); ALT (SGPT) 72 U/L (10-68); CALC OSMOLALITY 280 mosm/kg (275-300); CARBON DIOXIDE 28.1 mmol/L (21.0-32.0); CHLORIDE - SERUM 106 mmol/L (98-107); CREATININE - SERUM 0.9 mg/dL (0.6-1.3); GLUCOSE 96 mg/dL (74-106); POTASSIUM - SERUM 4.6 mmol/L (3.5-5.1); PROTEIN - SERUM 7.5 g/dL (6.4-8.2); SODIUM 142 mmol/L (136-145); UREA NITROGEN 7 mg/dL (7-18); eGFR NON AFRICAN AMERICAN 76 mL/min (90-120)
[2017-09-12] MEDS ORDERED: ARTHROTEC 501 TAB.EC PO (18:36)
[2017-09-12 19:11] VITALS: BP 142/94
[2017-09-27] MEDS ORDERED: HYDROCODON-ACE1 EAC7 PO (08:16)
== END 2017-09-12 19:09 | disposition home or self-care (01) ==
LOC: D.ER 13:02
PROVIDERS: Family Medicine
DX: N80.9 Endometriosis, unspecified (principal); N30.10 Interstitial cystitis (chronic) without hematuria; N83.519 Torsion of ovary and ovarian pedicle, unspecified side; N39.0 Urinary tract infection, site not specified; R10.2 Pelvic and perineal pain; F17.200 Nicotine dependence, unspecified, uncomplicated

== ENCOUNTER 2017-09-14 10:18 | Emergency (ER) | payer MEDICAID ==
[~2017-09-14] VITALS: Ht 165.1 cm; Wt 96.8 kg
[~2017-09-14 10:18] MED LIST changes: +ARTHROTEC 501 TAB.EC PO
[2017-09-14 10:28] VITALS: Ht 165.1 cm; Wt 96.8 kg
[2017-09-14 11:03] LABS: BASOPHILS 0.2 % (0-2); EOSINOPHILS 1.4 % (0-7); HEMATOCRIT 40.6 % (36.0-48.0); HEMOGLOBIN 14.4 g/dL (12-16); IMMATURE GRANULOCYTES 0.2 % (0-5); LYMPHOCYTES 26.5 % (15-50); MCH 32.9 pg (26.0-34.0); MCHC 35.5 g/dL (31.0-37.0); MCV 92.7 fL (80.0-100.0); MEAN PLATELET VOLUME 11.7 fL (7.4-10.4); MONOCYTES 7.8 % (2-11); NEUTROPHILS 63.9 % (40-80); PLATELET COUNT 238 10x3/uL (130-400); RBC 4.38 10x6/uL (4.00-5.40); RDW 14.4 % (11.5-14.5); WBC 10.9 10x3/uL (4.8-10.8)
[2017-09-14 11:23] LABS: UDS - AMPHET NEGATIVE QUAL (NEGATIVE); UDS - BARB NEGATIVE QUAL (NEGATIVE); UDS - BENZO NEGATIVE QUAL (NEGATIVE); UDS - COCAINE NEGATIVE QUAL (NEGATIVE); UDS - OPIATE POSITIVE QUAL (NEGATIVE); UDS - PCP NEGATIVE QUAL (NEGATIVE); UDS - THC NEGATIVE QUAL (NEGATIVE)
[2017-09-14 11:26] LABS: ALBUMIN 3.3 g/dL (3.4-5.0); ALKALINE PHOSPHATASE 122 U/L (46-116); ALT (SGPT) 79 U/L (10-68); CALCIUM 8.8 mg/dL (8.5-10.1); CARBON DIOXIDE 28.2 mmol/L (21.0-32.0); CHLORIDE - SERUM 107 mmol/L (98-107); CREATININE - SERUM 0.8 mg/dL (0.6-1.3); GLUCOSE 103 mg/dL (74-106); PROTEIN - SERUM 6.9 g/dL (6.4-8.2); SODIUM 141 mmol/L (136-145); eGFR NON AFRICAN AMERICAN 87 mL/min (90-120)
[2017-09-14 11:28] LABS: APPEARANCE HAZY (CLEAR); BACTERIA MODERATE /hpf (NONE SEEN); BILIRUBIN NEGATIVE (NEGATIVE); COLOR YELLOW (YELLOW); GLUCOSE NEGATIVE (NEGATIVE); KETONE NEGATIVE (NEGATIVE); NITRITE NEGATIVE (NEGATIVE); PROTEIN NEGATIVE (NEGATIVE); SPECIFIC GRAVITY 1.005 (1.005-1.020); UROBILINOGEN NORMAL (NORMAL); WHITE CELLS - URINE 0-5 /hpf (0-5)
[2017-09-14 11:29] LABS: CALC OSMOLALITY 279 mosm/kg (275-300); UREA NITROGEN 9 mg/dL (7-18)
[2017-09-14 11:32] LABS: AMYLASE - SERUM 51 U/L (25-115); LIPASE 257 U/L (73-393)
[2017-09-14] MEDS ORDERED: VALIUM 2 MG TAB2 MG PO (11:55)
[2017-09-14 12:02] LABS: HCG URINE NEGATIVE (NEGATIVE)
[2017-09-14 12:17] VITALS: BP 116/73
[2017-09-27] MEDS ORDERED: HYDROCODON-ACE1 EAC7 PO (08:16)
== END 2017-09-14 12:28 | disposition home or self-care (01) ==
LOC: D.ER 10:18
PROVIDERS: Family Medicine
DX: R10.2 Pelvic and perineal pain (principal); N80.9 Endometriosis, unspecified; R11.0 Nausea; F17.200 Nicotine dependence, unspecified, uncomplicated

== ENCOUNTER 2017-09-16 10:52 | Emergency (ER) | payer MEDICAID ==
[~2017-09-16] VITALS: Ht 165.1 cm; Wt 95.9 kg
[~2017-09-16 10:52] MED LIST changes: +VALIUM 2 MG TAB2 MG PO
[2017-09-16 10:57] VITALS: Ht 165.1 cm; Wt 95.9 kg
[2017-09-16 13:13] LABS: APPEARANCE CLEAR (CLEAR); BILIRUBIN NEGATIVE (NEGATIVE); COLOR STRAW (YELLOW); GLUCOSE NEGATIVE (NEGATIVE); KETONE NEGATIVE (NEGATIVE); NITRITE NEGATIVE (NEGATIVE); PROTEIN NEGATIVE (NEGATIVE); SPECIFIC GRAVITY 1.005 (1.005-1.020); UROBILINOGEN NORMAL (NORMAL)
[2017-09-16 13:16] LABS: ALBUMIN 3.5 g/dL (3.4-5.0); ALKALINE PHOSPHATASE 140 U/L (46-116); ALT (SGPT) 94 U/L (10-68); CALC OSMOLALITY 275 mosm/kg (275-300); CALCIUM 9.5 mg/dL (8.5-10.1); CARBON DIOXIDE 23.9 mmol/L (21.0-32.0); CHLORIDE - SERUM 104 mmol/L (98-107); CREATININE - SERUM 0.7 mg/dL (0.6-1.3); GLUCOSE 99 mg/dL (74-106); POTASSIUM - SERUM 4.7 mmol/L (3.5-5.1); PROTEIN - SERUM 7.2 g/dL (6.4-8.2); SODIUM 139 mmol/L (136-145); UREA NITROGEN 7 mg/dL (7-18); eGFR NON AFRICAN AMERICAN > 90 mL/min (90-120)
[2017-09-16 13:48] VITALS: BP 129/96
[2017-09-27] MEDS ORDERED: HYDROCODON-ACE1 EAC7 PO (08:16)
== END 2017-09-16 13:51 | disposition left against medical advice (07) ==
LOC: D.ER 10:52
PROVIDERS: Family Medicine
DX: G89.18 Other acute postprocedural pain (principal); R10.2 Pelvic and perineal pain; F17.200 Nicotine dependence, unspecified, uncomplicated; N80.9 Endometriosis, unspecified

== ENCOUNTER 2017-09-28 08:52 | Day surgery (SDC) | payer MEDICAID ==
[2017-09-27 08:40] LABS: BASOPHILS 0.3 % (0-2); EOSINOPHILS 1.5 % (0-7); HEMATOCRIT 40.5 % (36.0-48.0); HEMOGLOBIN 14.4 g/dL (12-16); IMMATURE GRANULOCYTES 0.3 % (0-5); LYMPHOCYTES 27.2 % (15-50); MCH 33.4 pg (26.0-34.0); MCHC 35.6 g/dL (31.0-37.0); MEAN PLATELET VOLUME 11.2 fL (7.4-10.4); MONOCYTES 7.9 % (2-11); NEUTROPHILS 62.8 % (40-80); PLATELET COUNT 255 10x3/uL (130-400); RBC 4.31 10x6/uL (4.00-5.40); RDW 14.9 % (11.5-14.5); WBC 11.5 10x3/uL (4.8-10.8)
[2017-09-27 08:48] LABS: CALC OSMOLALITY 279 mosm/kg (275-300); CALCIUM 9.1 mg/dL (8.5-10.1); CARBON DIOXIDE 26.6 mmol/L (21.0-32.0); CHLORIDE - SERUM 106 mmol/L (98-107); CREATININE - SERUM 0.9 mg/dL (0.6-1.3); GLUCOSE 109 mg/dL (74-106); POTASSIUM - SERUM 4.3 mmol/L (3.5-5.1); SODIUM 140 mmol/L (136-145); UREA NITROGEN 12 mg/dL (7-18); eGFR NON AFRICAN AMERICAN 76 mL/min (90-120)
[2017-09-28] VITALS (8 sets, daily range): BP systolic 120–133; BP diastolic 61–77; Ht 165.1 cm; Wt 95.3 kg
[~2017-09-28] VITALS: Ht 165.1 cm; Wt 95.3 kg
--- NOTE | ~2017-09-28 | OP ---
PATIENT NAME: ANJALI SAAVEDRA MEDICAL RECORD: [id number] :84 LOCATION:D.[facility] ADMISSION DATE: SURGEON: YULIANA MELGOZA MD DATE OF OPERATION: 09/28/2017 PREOPERATIVE DIAGNOSES: 1. Chronic pelvic pain. 2. Secondary dysmenorrhea. POSTOPERATIVE DIAGNOSES: 1. Chronic pelvic pain. 2. Secondary dysmenorrhea. PROCEDURE PERFORMED: 1. Diagnostic laparoscopy. 2. Laparoscopic subtotal hysterectomy with bilateral salpingectomy. SURGEON: Yuliana Melgoza MD FINANCIAL AID COORDINATOR: Preston Walters MD ANESTHESIA: Dr. Calle. FINDINGS: Uterus is slightly enlarged. Tubes were unremarkable. What was visualized of the abdominal anatomy was unremarkable. Ovaries are unremarkable. SPECIMENS REMOVED: Uterus and tubes morcellated. SPECIMEN DISPOSITION: Pathology. ESTIMATED BLOOD LOSS: Less than or equal to 75 cc. FLUIDS: 1000 cc of lactated Ringer's. URINE OUTPUT: 50 cc of clear urine. DRAINS: None. COMPLICATIONS: None. INDICATIONS: The patient is a 32-year-old female with chronic pelvic pain secondary dysmenorrhea. The patient understands the limitations of hysterectomy as well as risks. DESCRIPTION OF PROCEDURE: After informed consent was assured, the patient was taken to the operating room where anesthetic was obtained without difficulty. The patient was then prepped and draped in the usual sterile fashion. An infraumbilical trocar was inserted and pneumoperitoneum developed. Accessory ports were placed in the right and left lower quadrants. The right lower quadrant port was a 10-12 port. The left tube was elevated and using coagulation cutter, the tube's attachment to the adnexa was serially compressed, coagulated, and . The dissection was carried down underneath the tube across the uterine ovarian ligament and round ligaments. The anterior leaf of the broad ligament was opened to the midline developing the bladder flap. The posterior leaf was opened and then the vessels of the left side, skeletonized, OPERATIVE REPORT [id number] ANJALI SAAVEDRA compressed, coagulated, and . This was repeated on the contralateral side. The right tube was elevated and again the attachments of the tube to the adnexa were serially compressed, coagulated, and . The dissection was carried over the uterine ovarian ligaments and round ligaments. The broad ligament was opened on the right side and carried down and the bladder flap fully developed. The posterior leaf was dissected and the vessels skeletonized on the right side. At the level of the internal os, the vessels were compressed, coagulated, and as with the left. Using a harmonic scalpel, the uterus was now removed from its attachments to the cervix. The 10-12 port was now removed and a Plasma Sword was inserted. The tubes were grasped and morcellated first and then the uterus was morcellated in several segments. After morcellation was completed, a 10-12 port replaces the Plasma Sword and pelvis was irrigated. The irrigant was removed and the straight portions of uterus removed. Interceed was placed over the cervical stump. Sponge, lap, and needle counts correct times 2 at the close of this procedure. The patient was awakened and went to the recovery room in stable condition after close of the incisions and sterile dressings applied. TRANSINT:[id number] Voice Confirmation ID: [id number] DOCUMENT ID: [id number] YULIANA MELGOZA MD at 0731 CC: [id number] DICTATION DATE: 10/19/17 0904 ORDER PROCESSOR: 10/19/17 1121 [facility] 09/28/17 [facility] [address] [place] [address]
[~2017-09-28 08:52] MED LIST changes: +HYDROCODON-ACE1 EAC7 PO
[2017-09-28 15:02] LABS: HCG URINE NEGATIVE (NEGATIVE)
[2017-09-28] MEDS ORDERED: ZOFRAN4 MG PO (16:33)
[2017-09-28] MEDS ORDERED: MOBIC7.5 MG PO (16:34)
[2017-09-28] MEDS ORDERED: NEURONTIN 300300 MG PO (16:35)
[2017-09-28] MEDS ORDERED: ROXICODONE30 MG PO (16:38)
== END 2017-09-28 17:30 | disposition home or self-care (01) ==
LOC: D.OPS 08:52 → D.PAN 09:00 → D.OPS 09:00 → D.PAN 11:00 → D.LD 14:35 → D.OPS 17:30
PROVIDERS: Obstetrics & Gynecology
DX: R10.2 Pelvic and perineal pain (principal); N94.6 Dysmenorrhea, unspecified; Z01.812 Encounter for preprocedural laboratory examination

== ENCOUNTER 2017-10-03 09:47 | Emergency (ER) | payer MEDICAID ==
[~2017-10-03] VITALS: Ht 165.1 cm; Wt 95.5 kg
[~2017-10-03 09:47] MED LIST changes: +MOBIC7.5 MG PO; +NEURONTIN 300300 MG PO; +ROXICODONE30 MG PO
[2017-10-03 09:52] VITALS: Ht 165.1 cm; Wt 95.5 kg
[2017-10-03 10:48] LABS: BASOPHILS 0.1 % (0-2); EOSINOPHILS 2.7 % (0-7); HEMATOCRIT 43.5 % (36.0-48.0); HEMOGLOBIN 15.4 g/dL (12-16); IMMATURE GRANULOCYTES 0.3 % (0-5); LYMPHOCYTES 15.6 % (15-50); MCH 33.3 pg (26.0-34.0); MCHC 35.4 g/dL (31.0-37.0); MCV 94.2 fL (80.0-100.0); MEAN PLATELET VOLUME 11.3 fL (7.4-10.4); MONOCYTES 7.6 % (2-11); NEUTROPHILS 73.7 % (40-80); PLATELET COUNT 309 10x3/uL (130-400); RBC 4.62 10x6/uL (4.00-5.40); RDW 14.4 % (11.5-14.5); WBC 16.1 10x3/uL (4.8-10.8)
[2017-10-03 10:51] LABS: APPEARANCE HAZY (CLEAR); COLOR STRAW (YELLOW); SPECIFIC GRAVITY 1.005 (1.005-1.020)
[2017-10-03 10:53] LABS: BILIRUBIN NEGATIVE (NEGATIVE); GLUCOSE NEGATIVE (NEGATIVE); KETONE NEGATIVE (NEGATIVE); NITRITE NEGATIVE (NEGATIVE); PROTEIN NEGATIVE (NEGATIVE); UROBILINOGEN NORMAL (NORMAL)
[2017-10-03 10:57] LABS: BACTERIA MODERATE /hpf (NONE SEEN); RED CELLS - URINE OCC /hpf (0-5)
[2017-10-03 11:02] LABS: ALBUMIN 3.5 g/dL (3.4-5.0); ALKALINE PHOSPHATASE 141 U/L (46-116); ALT (SGPT) 60 U/L (10-68); CALC OSMOLALITY 278 mosm/kg (275-300); CALCIUM 9.7 mg/dL (8.5-10.1); CHLORIDE - SERUM 106 mmol/L (98-107); CREATININE - SERUM 0.8 mg/dL (0.6-1.3); GLUCOSE 91 mg/dL (74-106); POTASSIUM - SERUM 4.4 mmol/L (3.5-5.1); PROTEIN - SERUM 7.8 g/dL (6.4-8.2); SODIUM 141 mmol/L (136-145); UREA NITROGEN 8 mg/dL (7-18); eGFR NON AFRICAN AMERICAN 87 mL/min (90-120)
[2017-10-03] MEDS ORDERED: DICLOFENAC SODI50 MG PO (12:27)
[2017-10-03] MEDS ORDERED: MACROBID100 MG PO (12:27)
[2017-10-03 12:47] VITALS: BP 125/77
== END 2017-10-03 12:48 | disposition home or self-care (01) ==
LOC: D.ER 09:47
PROVIDERS: Family Medicine
DX: G89.18 Other acute postprocedural pain (principal); N39.0 Urinary tract infection, site not specified; F17.200 Nicotine dependence, unspecified, uncomplicated

== ENCOUNTER 2017-10-07 19:36 | Emergency (ER) | payer MEDICAID ==
[~2017-10-07] VITALS: Ht 165.1 cm; Wt 93.2 kg
[~2017-10-07 19:36] MED LIST changes: +DICLOFENAC SODI50 MG PO; +MACROBID100 MG PO
[2017-10-07 19:51] VITALS: Ht 165.1 cm; Wt 93.2 kg
[2017-10-07 20:42] LABS: BASOPHILS 0.5 % (0-2); HEMATOCRIT 41.2 % (36.0-48.0); HEMOGLOBIN 14.3 g/dL (12-16); IMMATURE GRANULOCYTES 0.3 % (0-5); LYMPHOCYTES 30.5 % (15-50); MCH 32.7 pg (26.0-34.0); MCHC 34.7 g/dL (31.0-37.0); MCV 94.3 fL (80.0-100.0); MEAN PLATELET VOLUME 11.5 fL (7.4-10.4); MONOCYTES 5.6 % (2-11); NEUTROPHILS 59.1 % (40-80); PLATELET COUNT 314 10x3/uL (130-400); RBC 4.37 10x6/uL (4.00-5.40); WBC 13.1 10x3/uL (4.8-10.8)
[2017-10-07 21:20] LABS: ALBUMIN 3.5 g/dL (3.4-5.0); ALKALINE PHOSPHATASE 153 U/L (46-116); ALT (SGPT) 68 U/L (10-68); BILIRUBIN - TOTAL 0.18 mg/dL (0.2-1.3); CALC OSMOLALITY 277 mosm/kg (275-300); CALCIUM 9.3 mg/dL (8.5-10.1); CARBON DIOXIDE 26.8 mmol/L (21.0-32.0); CHLORIDE - SERUM 102 mmol/L (98-107); CREATININE - SERUM 0.8 mg/dL (0.6-1.3); GLUCOSE 109 mg/dL (74-106); POTASSIUM - SERUM 4.6 mmol/L (3.5-5.1); PROTEIN - SERUM 7.3 g/dL (6.4-8.2); SODIUM 139 mmol/L (136-145); UREA NITROGEN 10 mg/dL (7-18); eGFR NON AFRICAN AMERICAN 87 mL/min (90-120)
[2017-10-07] MEDS ORDERED: CLEOCIN HCL300 MG PO (23:18)
[2017-10-07] MEDS ORDERED: ULTRAM50 MG PO (23:18)
[2017-10-07 23:39] VITALS: BP 121/76
== END 2017-10-07 23:39 | disposition home or self-care (01) ==
LOC: D.ER 19:36
PROVIDERS: Family Medicine
DX: T81.4XXA Infection following a procedure, initial encounter (principal); R10.9 Unspecified abdominal pain; F17.200 Nicotine dependence, unspecified, uncomplicated

== ENCOUNTER 2017-10-18 14:26 | Emergency (ER) | payer MEDICAID ==
[~2017-10-18] VITALS: Ht 165.1 cm; Wt 90.9 kg
[~2017-10-18 14:26] MED LIST changes: +CLEOCIN HCL300 MG PO; +ULTRAM50 MG PO
[2017-10-18 14:40] VITALS: Ht 165.1 cm; Wt 90.9 kg
[2017-10-18 15:21] LABS: APPEARANCE CLEAR (CLEAR); BILIRUBIN NEGATIVE (NEGATIVE); COLOR YELLOW (YELLOW); GLUCOSE NEGATIVE (NEGATIVE); KETONE NEGATIVE (NEGATIVE); NITRITE NEGATIVE (NEGATIVE); PROTEIN NEGATIVE (NEGATIVE); SPECIFIC GRAVITY 1.015 (1.005-1.020); UROBILINOGEN NORMAL (NORMAL)
[2017-10-18 15:24] LABS: BACTERIA FEW /hpf (NONE SEEN); EPITHELIAL CELLS 0-5 /hpf (0-5); RED CELLS - URINE OCC /hpf (0-5); WHITE CELLS - URINE 0-5 /hpf (0-5)
[2017-10-18 15:30] LABS: BASOPHILS 0.4 % (0-2); EOSINOPHILS 5.6 % (0-7); HEMATOCRIT 40.8 % (36.0-48.0); HEMOGLOBIN 14.6 g/dL (12-16); IMMATURE GRANULOCYTES 0.5 % (0-5); LYMPHOCYTES 22.2 % (15-50); MCH 33.2 pg (26.0-34.0); MCHC 35.8 g/dL (31.0-37.0); MCV 92.7 fL (80.0-100.0); MEAN PLATELET VOLUME 11.3 fL (7.4-10.4); NEUTROPHILS 68.3 % (40-80); PLATELET COUNT 262 10x3/uL (130-400); RDW 15.1 % (11.5-14.5); WBC 14.4 10x3/uL (4.8-10.8)
[2017-10-18 15:43] LABS: ALBUMIN 3.5 g/dL (3.4-5.0); ALKALINE PHOSPHATASE 124 U/L (46-116); ALT (SGPT) 51 U/L (10-68); BILIRUBIN - TOTAL 0.26 mg/dL (0.2-1.3); CALC OSMOLALITY 272 mosm/kg (275-300); CALCIUM 8.8 mg/dL (8.5-10.1); CARBON DIOXIDE 24.9 mmol/L (21.0-32.0); CHLORIDE - SERUM 102 mmol/L (98-107); CREATININE - SERUM 0.8 mg/dL (0.6-1.3); GLUCOSE 121 mg/dL (74-106); POTASSIUM - SERUM 3.8 mmol/L (3.5-5.1); PROTEIN - SERUM 7.6 g/dL (6.4-8.2); SODIUM 137 mmol/L (136-145); UREA NITROGEN 8 mg/dL (7-18); eGFR NON AFRICAN AMERICAN 87 mL/min (90-120)
[2017-10-18 18:00] VITALS: BP 125/76
[2017-10-18] MEDS ORDERED: TYLENOL W/CODEI1 TAB PO (20:51)
[2017-10-18] MEDS ORDERED: ZOFRAN ODT4 MG/UDTAB PO (20:51)
== END 2017-10-18 21:03 | disposition home or self-care (01) ==
LOC: D.ER 14:26
PROVIDERS: Emergency Medicine
DX: R10.2 Pelvic and perineal pain (principal); R10.30 Lower abdominal pain, unspecified; F17.200 Nicotine dependence, unspecified, uncomplicated

== ENCOUNTER → 2017-10-21 19:38 | Outpatient (CLI) | payer MEDICAID ==
[2017-10-18 14:40] VITALS: BMI 33.3
[~2017-10-21 19:38] MED LIST changes: +GUAIFENESI100 MG/5 M PO; +PREDNISONE10 MG PO; +TYLENOL W/CODEI1 TAB PO; +VIBRAMYCIN 100100 MG PO; +ZOFRAN ODT4 MG/UDTAB PO
== END | disposition home or self-care (01) ==
LOC: D.LABREF 19:38
DX: N39.0 Urinary tract infection, site not specified (principal)

== ENCOUNTER 2017-12-16 14:58 | Emergency (ER) | payer MEDICAID ==
[~2017-12-16] VITALS: Ht 165.1 cm; Wt 98.0 kg
[~2017-12-16 14:58] MED LIST changes: -GUAIFENESI100 MG/5 M PO; -PREDNISONE10 MG PO; -VIBRAMYCIN 100100 MG PO
[2017-12-16 15:24] VITALS: Ht 165.1 cm; Wt 98.0 kg
[2017-12-16] MEDS ORDERED: PREDNISONE10 MG PO (16:48)
[2017-12-16] MEDS ORDERED: VIBRAMYCIN 100100 MG PO (16:48)
[2017-12-16 17:14] VITALS: BP 131/85
== END 2017-12-16 17:10 | disposition home or self-care (01) ==
LOC: D.ER 14:58
DX: J40 Bronchitis, not specified as acute or chronic (principal); R05 Cough; F17.200 Nicotine dependence, unspecified, uncomplicated

== ENCOUNTER 2017-12-19 08:17 | Emergency (ER) | payer MEDICAID ==
[~2017-12-19] VITALS: Ht 165.1 cm; Wt 98.2 kg
[~2017-12-19 08:17] MED LIST changes: +PREDNISONE10 MG PO; +VIBRAMYCIN 100100 MG PO
[2017-12-19 08:47] VITALS: Ht 165.1 cm; Wt 98.2 kg
[2017-12-19 10:38] LABS: BASOPHILS 0.2 % (0-2); EOSINOPHILS 0.1 % (0-7); HEMATOCRIT 46.3 % (36.0-48.0); HEMOGLOBIN 16.7 g/dL (12-16); IMMATURE GRANULOCYTES 0.4 % (0-5); LYMPHOCYTES 18.8 % (15-50); MCH 33.1 pg (26.0-34.0); MCHC 36.1 g/dL (31.0-37.0); MCV 91.9 fL (80.0-100.0); MEAN PLATELET VOLUME 11.1 fL (7.4-10.4); MONOCYTES 7.8 % (2-11); NEUTROPHILS 72.7 % (40-80); RBC 5.04 10x6/uL (4.00-5.40); RDW 14.9 % (11.5-14.5); WBC 19.4 10x3/uL (4.8-10.8)
[2017-12-19 10:39] LABS: PLATELET COUNT 334 10x3/uL (130-400)
[2017-12-19 11:03] LABS: ALBUMIN 3.8 g/dL (3.4-5.0); ALKALINE PHOSPHATASE 103 U/L (46-116); ALT (SGPT) 68 U/L (10-68); BILIRUBIN - TOTAL 0.33 mg/dL (0.2-1.3); CALC OSMOLALITY 274 mosm/kg (275-300); CALCIUM 9.3 mg/dL (8.5-10.1); CARBON DIOXIDE 21.5 mmol/L (21.0-32.0); CHLORIDE - SERUM 101 mmol/L (98-107); CREATININE - SERUM 0.9 mg/dL (0.6-1.3); GLUCOSE 102 mg/dL (74-106); PROTEIN - SERUM 8.2 g/dL (6.4-8.2); SODIUM 137 mmol/L (136-145); UREA NITROGEN 15 mg/dL (7-18); eGFR NON AFRICAN AMERICAN 76 mL/min (90-120)
[2017-12-19] MEDS ORDERED: GUAIFENESI100 MG/5 M PO (15:07)
[2017-12-19 15:26] VITALS: BP 124/80
== END 2017-12-19 15:27 | disposition home or self-care (01) ==
LOC: D.ER 08:17
PROVIDERS: Family Medicine
DX: J20.9 Acute bronchitis, unspecified (principal); D72.829 Elevated white blood cell count, unspecified; R09.89 Other specified symptoms and signs involving the circulatory and respiratory systems

== ENCOUNTER 2018-01-10 17:34 | Day surgery (SDC) | payer MEDICAID ==
[~2018-01-10] VITALS: Ht 165.1 cm; Wt 95.3 kg
--- NOTE | ~2018-01-10 | OP ---
PATIENT NAME: ANJALI SAAVEDRA MEDICAL RECORD: [id number] :84 LOCATION:D.M3 D.1210 ADMISSION DATE:01/10/18 SURGEON: ROBERTO LAGUNA MD DATE OF OPERATION: 01/11/2018 PREOPERATIVE DIAGNOSIS: Acute appendicitis. POSTOPERATIVE DIAGNOSIS: Acute appendicitis without rupture or abscess. PROCEDURE: Laparoscopic appendectomy. SURGEON: Roberto Laguna MD ASSISTANT QUALITY MANAGER: None. BLOOD LOSS: Minimal. ANESTHESIA: General. COMPLICATIONS: None. I reviewed the patient's CT scan prior to the procedure. I examined the patient as well. The risks, possible complications, and alternatives to the procedure were explained to the patient. She elects to proceed. The discussion specifically included, but was not limited to, bleeding requiring an emergency reoperation, infection, intestinal injury as well as an open procedure. The family was specifically instructed to come to the [facility], which is the postsurgical waiting area. They chose not to, and therefore I had a difficult time finding them after the procedure. OPERATIVE COURSE: The patient was conveyed to the operating room electively on 01/11/2018. General anesthesia was induced by the anesthesia staff. The abdomen was sterilely prepped and draped. A small skin atilio was accomplished in the left upper quadrant. Veress needle was inserted through the skin atilio into the peritoneal cavity. CO2 insufflation was begun. Once a sufficient pneumoperitoneum had been achieved, a 5-mm trocar was inserted through an incision in the left lower quadrant. Under direct internal vision, utilizing a television camera, a 12-mm trocar was inserted through an incision at the umbilicus. Another 5-mm trocar was inserted through an incision in the right groin. During insertion of the Veress needle and all trocars, there appeared to have been no injury to the bowels, any intraperitoneal or retroperitoneal structures. The appendix was grasped. A window was created in the mesoappendix. The mesoappendix was taken down with the laparoscopic EnSeal device. I then stapled across the tip of the cecum with an Endo-YARITZA type staple utilizing blue loads. The appendix was placed within a bag retrieval device and was withdrawn through the umbilical fascia defect. The 12-mm trocar was replaced and the abdomen reinsufflated. I irrigated and aspirated in the right lower quadrant. There was no bleeding even at low pressure of 8. The 12-mm trocar was removed. The fascia at the umbilicus was closed with a single 0 Vicryl suture. The skin incision at the umbilicus was closed with interrupted 4-0 Vicryl Rapide sutures. The other skin incisions OPERATIVE REPORT [id number] ANJALI SAAVEDRA were closed with interrupted intracuticular 3-0 Vicryls. Benzoin and Steri-Strips were applied. The patient was then extubated and conveyed to the post-anesthesia care unit where she was in stable condition. Plan is, she will be dismissed home today. I contacted family by home. I gave them her discharge instructions. TRANSINT:[id number] Voice Confirmation ID: [id number] DOCUMENT ID: [id number] ROBERTO LAGUNA MD at 1004 CC: [id number] DICTATION DATE: 01/11/18 1000 SPONGE PACKER: 01/11/18 1102 [facility] 01/11/18 [id number] [place] [address]
[~2018-01-10 17:34] MED LIST changes: +GUAIFENESI100 MG/5 M PO
[2018-01-10 18:14] LABS: BASOPHILS 0.5 % (0-2); EOSINOPHILS 2.6 % (0-7); HEMATOCRIT 42.1 % (36.0-48.0); HEMOGLOBIN 14.9 g/dL (12-16); IMMATURE GRANULOCYTES 0.5 % (0-5); LYMPHOCYTES 34.5 % (15-50); MCH 33.2 pg (26.0-34.0); MCHC 35.4 g/dL (31.0-37.0); MCV 93.8 fL (80.0-100.0); MEAN PLATELET VOLUME 11.5 fL (7.4-10.4); MONOCYTES 6.8 % (2-11); NEUTROPHILS 55.1 % (40-80); RBC 4.49 10x6/uL (4.00-5.40); RDW 14.9 % (11.5-14.5); WBC 12.5 10x3/uL (4.8-10.8)
[2018-01-10 18:16] LABS: PLATELET COUNT 240 10x3/uL (130-400)
[2018-01-10 18:25] LABS: APPEARANCE CLEAR (CLEAR); BILIRUBIN NEGATIVE (NEGATIVE); COLOR YELLOW (YELLOW); GLUCOSE NEGATIVE (NEGATIVE); KETONE NEGATIVE (NEGATIVE); NITRITE NEGATIVE (NEGATIVE); PROTEIN NEGATIVE (NEGATIVE); UROBILINOGEN NORMAL (NORMAL)
[2018-01-10 18:37] LABS: ALBUMIN 3.4 g/dL (3.4-5.0); ALKALINE PHOSPHATASE 100 U/L (46-116); ALT (SGPT) 45 U/L (10-68); CALC OSMOLALITY 274 mosm/kg (275-300); CALCIUM 9.2 mg/dL (8.5-10.1); CARBON DIOXIDE 24.7 mmol/L (21.0-32.0); CHLORIDE - SERUM 104 mmol/L (98-107); CREATININE - SERUM 0.8 mg/dL (0.6-1.3); GLUCOSE 92 mg/dL (74-106); LIPASE 253 U/L (73-393); POTASSIUM - SERUM 4.1 mmol/L (3.5-5.1); PROTEIN - SERUM 7.2 g/dL (6.4-8.2); SODIUM 139 mmol/L (136-145); UREA NITROGEN 4 mg/dL (7-18); eGFR NON AFRICAN AMERICAN 87 mL/min (90-120)
[2018-01-11] MEDS ORDERED: KLONOPIN1 MG PO (00:39)
[2018-01-11 00:48] VITALS: BP 123/69
[2018-01-11 00:49] VITALS: BP 123/69; BMI 35.0
[2018-01-11] MEDS ORDERED: MAG SALT PO (00:53)
[2018-01-11 04:47] VITALS: BP 106/63
[2018-01-11 06:59] VITALS: BP 108/40
[2018-01-11 09:53] VITALS: Ht 165.1 cm; Wt 95.3 kg
[2018-01-11 10:23] VITALS: BP 114/59
[2018-01-11] MEDS ORDERED: COLACE100 MG PO (12:52)
[2018-01-11] MEDS ORDERED: HYDROCODON-ACE1 EAC7 PO (12:52)
== END 2018-01-11 13:15 | disposition home or self-care (01) ==
LOC: OBSVTIME → D.OPS 17:34 → D.ER 17:34 → OBSVTIME 21:49 → D.ER 21:49 → D.M3 21:49 → D.ER 23:58 → D.M3 01-11 13:15 → D.OPS 01-11 13:15 → D.M3 01-11 13:15 → EDSTATUS 01-11 15:45
PROVIDERS: Emergency Medicine
DX: K35.30 Acute appendicitis with localized peritonitis, without perforation or gangrene (principal); F41.9 Anxiety disorder, unspecified; Z72.0 Tobacco use

== ENCOUNTER 2018-01-25 07:22 | Emergency (ER) | payer MEDICAID ==
[~2018-01-25] VITALS: Ht 165.1 cm; Wt 95.5 kg
[~2018-01-25 07:22] MED LIST changes: +COLACE100 MG PO; +MAG SALT PO
[2018-01-25 07:59] VITALS: BP 124/82; Ht 165.1 cm; Wt 95.5 kg
[2018-01-25] MEDS ORDERED: PEPCID40 MG PO (08:38)
[2018-01-25] MEDS ORDERED: NORCO 7.5/325 T1 TA1 PO (08:38)
== END 2018-01-25 09:23 | disposition home or self-care (01) ==
LOC: D.ER 07:22
DX: H01.004 Unspecified blepharitis left upper eyelid (principal); T78.40XA Allergy, unspecified, initial encounter; X58.XXXA Exposure to other specified factors, initial encounter; R51 Headache; F17.200 Nicotine dependence, unspecified, uncomplicated

== ENCOUNTER 2018-01-29 07:47 | Emergency (ER) | payer MEDICAID ==
[~2018-01-29] VITALS: Ht 165.1 cm; Wt 95.5 kg
[~2018-01-29 07:47] MED LIST changes: +NORCO 7.5/325 T1 TA1 PO; +PEPCID40 MG PO
[2018-01-29 08:03] VITALS: Ht 165.1 cm; Wt 95.5 kg
[2018-01-29] MEDS ORDERED: KEFLEX500 MG PO (08:48)
[2018-01-29] MEDS ORDERED: ACETAMINOP160 MG/5 M PO (08:49)
[2018-01-29 09:46] VITALS: BP 140/80
== END 2018-01-29 09:47 | disposition home or self-care (01) ==
LOC: D.ER 07:47
DX: J40 Bronchitis, not specified as acute or chronic (principal); R09.89 Other specified symptoms and signs involving the circulatory and respiratory systems; M79.18 Myalgia, other site; F17.200 Nicotine dependence, unspecified, uncomplicated; M54.5 Low back pain

== ENCOUNTER 2018-02-02 20:44 | Emergency (ER) | payer MEDICAID ==
[~2018-02-02] VITALS: Ht 165.1 cm; Wt 97.7 kg
[~2018-02-02 20:44] MED LIST changes: +ACETAMINOP160 MG/5 M PO; +KEFLEX500 MG PO
[2018-02-02 21:00] VITALS: Ht 165.1 cm; Wt 97.7 kg
[2018-02-02] MEDS ORDERED: DOXYCYCLINE HY100 M2 PO (21:51)
[2018-02-02 22:05] VITALS: BP 134/89
== END 2018-02-02 22:05 | disposition home or self-care (01) ==
LOC: D.ER 20:44
DX: J40 Bronchitis, not specified as acute or chronic (principal); B37.0 Candidal stomatitis; R05 Cough; R51 Headache; F17.200 Nicotine dependence, unspecified, uncomplicated

== ENCOUNTER 2018-02-04 09:28 | Emergency (ER) | payer MEDICAID ==
[~2018-02-04] VITALS: Ht 165.1 cm; Wt 95.5 kg
[~2018-02-04 09:28] MED LIST changes: +DOXYCYCLINE HY100 M2 PO
[2018-02-04 09:31] VITALS: Ht 165.1 cm; Wt 95.5 kg
[2018-02-04 10:24] VITALS: BP 148/82
== END 2018-02-04 10:27 | disposition home or self-care (01) ==
LOC: D.ER 09:28
DX: J20.9 Acute bronchitis, unspecified (principal); F17.200 Nicotine dependence, unspecified, uncomplicated

== ENCOUNTER 2018-02-08 07:38 | Emergency (ER) | payer MEDICAID ==
[~2018-02-08] VITALS: Ht 165.1 cm; Wt 95.5 kg
[2018-02-08 07:50] VITALS: Ht 165.1 cm; Wt 95.5 kg
[2018-02-08 10:35] VITALS: BP 142/078
== END 2018-02-08 10:36 | disposition home or self-care (01) ==
LOC: D.ER 07:38
DX: G43.909 Migraine, unspecified, not intractable, without status migrainosus (principal); F41.9 Anxiety disorder, unspecified; F17.200 Nicotine dependence, unspecified, uncomplicated

== ENCOUNTER 2018-02-08 22:08 | Emergency (ER) | payer MEDICAID ==
[~2018-02-08] VITALS: Ht 165.1 cm; Wt 95.5 kg
[2018-02-08 22:13] VITALS: Ht 165.1 cm; Wt 95.5 kg
[2018-02-08 23:21] VITALS: BP 134/86
== END 2018-02-08 23:22 | disposition home or self-care (01) ==
LOC: D.ER 22:08
DX: R51 Headache (principal); F17.200 Nicotine dependence, unspecified, uncomplicated

== ENCOUNTER 2018-02-10 09:24 | Emergency (ER) | payer MEDICAID ==
[~2018-02-10] VITALS: Ht 165.1 cm; Wt 95.5 kg
[2018-02-10 09:33] VITALS: BP 129/75; Ht 165.1 cm; Wt 95.5 kg
== END 2018-02-10 11:17 | disposition home or self-care (01) ==
LOC: D.ER 09:24
DX: F41.9 Anxiety disorder, unspecified (principal); F17.200 Nicotine dependence, unspecified, uncomplicated

== ENCOUNTER 2018-03-08 20:09 | Emergency (ER) | payer MEDICAID ==
[~2018-03-08] VITALS: Ht 165.1 cm; Wt 102.3 kg
[~2018-03-08 20:09] MED LIST changes: -VOLTAREN75 MG PO
[2018-03-08 20:15] VITALS: Ht 165.1 cm; Wt 102.3 kg
[2018-03-08] MEDS ORDERED: VOLTAREN75 MG PO (21:05)
[2018-03-08 22:04] VITALS: BP 148/90
== END 2018-03-08 22:15 | disposition home or self-care (01) ==
LOC: D.ER 20:09
DX: J06.9 Acute upper respiratory infection, unspecified (principal); R59.0 Localized enlarged lymph nodes; F17.200 Nicotine dependence, unspecified, uncomplicated

== ENCOUNTER → 2018-03-08 | Emergency (ER) | payer MEDICAID ==
[2018-02-10 09:33] VITALS: BMI 35.0
[~2018-03-08] MED LIST changes: +VOLTAREN75 MG PO
== END | disposition home or self-care (01) ==
LOC: D.ER 14:23
DX: J06.9 Acute upper respiratory infection, unspecified (principal); R59.0 Localized enlarged lymph nodes; F17.200 Nicotine dependence, unspecified, uncomplicated

== ENCOUNTER 2018-04-09 07:30 | Emergency (ER) | payer MEDICAID ==
[~2018-04-09] VITALS: Ht 165.1 cm; Wt 100.0 kg
[~2018-04-09 07:30] MED LIST changes: +VOLTAREN75 MG PO
[2018-04-09 07:36] VITALS: Ht 165.1 cm; Wt 100.0 kg
[2018-04-09] MEDS ORDERED: PHENERGAN DM SYR5 ML PO (08:27)
[2018-04-09 08:32] VITALS: BP 128/80
== END 2018-04-09 08:33 | disposition home or self-care (01) ==
LOC: D.ER 07:30
DX: B34.9 Viral infection, unspecified (principal); F17.200 Nicotine dependence, unspecified, uncomplicated; J02.9 Acute pharyngitis, unspecified; M54.6 Pain in thoracic spine

== ENCOUNTER 2018-05-09 18:45 | Emergency (ER) | payer MEDICAID ==
[~2018-05-09] VITALS: Ht 165.1 cm; Wt 95.5 kg
[~2018-05-09 18:45] MED LIST changes: +PHENERGAN DM SYR5 ML PO
[2018-05-09 18:50] VITALS: Ht 165.1 cm; Wt 95.5 kg
[2018-05-09 19:03] LABS: BASOPHILS 0.3 % (0-2); EOSINOPHILS 1.3 % (0-7); HEMATOCRIT 43.2 % (36.0-48.0); HEMOGLOBIN 15.4 g/dL (12-16); IMMATURE GRANULOCYTES 0.3 % (0-5); LYMPHOCYTES 30.4 % (15-50); MCH 33.6 pg (26.0-34.0); MCHC 35.6 g/dL (31.0-37.0); MCV 94.1 fL (80.0-100.0); MEAN PLATELET VOLUME 11.2 fL (7.4-10.4); MONOCYTES 8.4 % (2-11); NEUTROPHILS 59.3 % (40-80); RBC 4.59 10x6/uL (4.00-5.40); RDW 13.7 % (11.5-14.5); WBC 14.3 10x3/uL (4.8-10.8)
[2018-05-09 19:07] LABS: PLATELET COUNT 305 10x3/uL (130-400)
[2018-05-09 19:21] LABS: ALBUMIN 3.4 g/dL (3.4-5.0); ALKALINE PHOSPHATASE 89 U/L (46-116); ALT (SGPT) 42 U/L (10-68); AMYLASE - SERUM 35 U/L (25-115); BILIRUBIN - TOTAL 0.21 mg/dL (0.2-1.3); CALC OSMOLALITY 276 mosm/kg (275-300); CALCIUM 8.7 mg/dL (8.5-10.1); CARBON DIOXIDE 24.7 mmol/L (21.0-32.0); CHLORIDE - SERUM 104 mmol/L (98-107); CREATININE - SERUM 0.8 mg/dL (0.6-1.3); GLUCOSE 98 mg/dL (74-106); LIPASE 136 U/L (73-393); PROTEIN - SERUM 7.1 g/dL (6.4-8.2); SODIUM 139 mmol/L (136-145); UREA NITROGEN 9 mg/dL (7-18); eGFR NON AFRICAN AMERICAN 87 mL/min (90-120)
[2018-05-09 19:41] LABS: APPEARANCE CLEAR (CLEAR); BILIRUBIN NEGATIVE (NEGATIVE); COLOR YELLOW (YELLOW); GLUCOSE NEGATIVE (NEGATIVE); KETONE NEGATIVE (NEGATIVE); NITRITE NEGATIVE (NEGATIVE); PROTEIN NEGATIVE (NEGATIVE); SPECIFIC GRAVITY 1.015 (1.005-1.020); UROBILINOGEN NORMAL (NORMAL)
[2018-05-09 20:24] LABS: HCG URINE NEGATIVE (NEGATIVE)
[2018-05-09] MEDS ORDERED: PHENERGAN25 M1 PO (21:38)
[2018-05-09] MEDS ORDERED: BENTYL 20 MG TA20 MG PO (21:38)
[2018-05-09 21:56] VITALS: BP 125/74
== END 2018-05-09 21:57 | disposition home or self-care (01) ==
LOC: D.ER 18:45
PROVIDERS: Emergency Medicine; Family Medicine
DX: A08.4 Viral intestinal infection, unspecified (principal)

== ENCOUNTER 2018-05-29 09:14 | Emergency (ER) | payer MEDICAID ==
[~2018-05-29] VITALS: Ht 165.1 cm; Wt 96.8 kg
[~2018-05-29 09:14] MED LIST changes: +BENTYL 20 MG TA20 MG PO; +PHENERGAN25 M1 PO
[2018-05-29 09:45] VITALS: BP 126/93; Ht 165.1 cm; Wt 96.8 kg
[2018-05-29] MEDS ORDERED: TYLENOL W/CODEI1 TAB PO (12:06)
[2018-05-29] MEDS ORDERED: NEURONTIN 300300 MG PO (12:08)
== END 2018-05-29 17:38 | disposition home or self-care (01) ==
LOC: D.ER 09:14
DX: M54.16 Radiculopathy, lumbar region (principal)

== ENCOUNTER 2018-05-31 17:27 | Emergency (ER) | payer MEDICAID ==
[~2018-05-31] VITALS: Ht 165.1 cm; Wt 94.3 kg
[2018-05-31 17:36] VITALS: BP 141/87; Ht 165.1 cm; Wt 94.3 kg
== END 2018-05-31 18:45 | disposition home or self-care (01) ==
LOC: D.ER 17:27
DX: M54.16 Radiculopathy, lumbar region (principal)

== ENCOUNTER 2018-09-29 08:33 | Emergency (ER) | payer MEDICAID ==
[~2018-09-29] VITALS: Ht 165.1 cm; Wt 81.8 kg
[2018-09-29 08:36] VITALS: Ht 165.1 cm; Wt 81.8 kg
[2018-09-29 09:04] LABS: BASOPHILS 0.3 % (0-2); EOSINOPHILS 1.6 % (0-7); HEMOGLOBIN 16.2 g/dL (12-16); IMMATURE GRANULOCYTES 0.1 % (0-5); LYMPHOCYTES 42.8 % (15-50); MCH 33.1 pg (26.0-34.0); MCV 91.8 fL (80.0-100.0); MEAN PLATELET VOLUME 10.9 fL (7.4-10.4); MONOCYTES 10.2 % (2-11); PLATELET COUNT 268 10x3/uL (130-400); RDW 13.1 % (11.5-14.5); WBC 8.6 10x3/uL (4.8-10.8)
[2018-09-29 09:14] LABS: ALBUMIN 3.5 g/dL (3.4-5.0); ALKALINE PHOSPHATASE 107 U/L (46-116); ALT (SGPT) 204 U/L (10-68); BILIRUBIN - TOTAL 0.26 mg/dL (0.2-1.3); CALC OSMOLALITY 274 mosm/kg (275-300); CALCIUM 8.8 mg/dL (8.5-10.1); CARBON DIOXIDE 26.3 mmol/L (21.0-32.0); CHLORIDE - SERUM 103 mmol/L (98-107); CREATININE - SERUM 0.8 mg/dL (0.6-1.3); GLUCOSE 101 mg/dL (74-106); POTASSIUM - SERUM 4.1 mmol/L (3.5-5.1); PROTEIN - SERUM 7.1 g/dL (6.4-8.2); SODIUM 138 mmol/L (136-145); UREA NITROGEN 9 mg/dL (7-18); eGFR NON AFRICAN AMERICAN 87 mL/min (90-120)
[2018-09-29 10:40] VITALS: BP 148/85
== END 2018-09-29 10:41 | disposition home or self-care (01) ==
LOC: D.ER 08:33
PROVIDERS: Family Medicine
DX: R06.02 Shortness of breath (principal); F41.9 Anxiety disorder, unspecified

== ENCOUNTER → 2018-10-23 11:07 | Outpatient (CLI) | payer MEDICAID | END | disposition home or self-care (01) | LOC: D.US 11:07 | PROVIDERS: ATTEND Nurse Practitioner | DX: M79.605 Pain in left leg (principal) ==

== ENCOUNTER 2018-10-29 20:06 | Emergency (ER) | payer MEDICAID ==
[~2018-10-29] VITALS: Ht 165.1 cm; Wt 86.2 kg
[2018-10-29 20:26] VITALS: Ht 165.1 cm; Wt 86.2 kg
[2018-10-29] MEDS ORDERED: MAXALT10 MG PO (21:26)
[2018-10-29 21:40] VITALS: BP 145/100
[2018-10-30] MEDS ORDERED: ULTRAM50 MG PO (18:47)
== END 2018-10-29 21:40 | disposition home or self-care (01) ==
LOC: D.ER 20:06
DX: G43.909 Migraine, unspecified, not intractable, without status migrainosus (principal)

== ENCOUNTER 2018-10-30 17:23 | Emergency (ER) | payer MEDICAID ==
[~2018-10-30] VITALS: Ht 165.1 cm; Wt 87.7 kg
[2018-10-30 17:26] VITALS: Ht 165.1 cm; Wt 87.7 kg
[2018-10-30] MEDS ORDERED: ULTRAM50 MG PO (18:47)
[2018-10-30 19:08] VITALS: BP 159/73
== END 2018-10-30 19:08 | disposition home or self-care (01) ==
LOC: D.ER 17:23
DX: M54.16 Radiculopathy, lumbar region (principal)

== ENCOUNTER 2018-11-06 10:11 | Emergency (ER) | payer MEDICAID ==
[~2018-11-06] VITALS: Ht 165.1 cm; Wt 87.7 kg
[2018-11-06 10:13] VITALS: Ht 165.1 cm; Wt 87.7 kg
[2018-11-06 10:27] VITALS: BP 134/83
== END 2018-11-06 10:35 | disposition home or self-care (01) ==
LOC: D.ER 10:11
DX: F41.9 Anxiety disorder, unspecified (principal); Z76.5 Malingerer [conscious simulation]

== ENCOUNTER 2018-11-26 18:34 | Emergency (ER) | payer MEDICAID ==
[~2018-11-26] VITALS: Ht 165.1 cm; Wt 85.9 kg
[2018-11-26 18:50] VITALS: Ht 165.1 cm; Wt 85.9 kg
[2018-11-26] MEDS ORDERED: MAXALT10 MG PO (21:09)
[2018-11-26 21:51] VITALS: BP 120/74
== END 2018-11-26 21:52 | disposition home or self-care (01) ==
LOC: D.ER 18:34
DX: G43.909 Migraine, unspecified, not intractable, without status migrainosus (principal); G89.29 Other chronic pain

== ENCOUNTER 2018-12-11 08:46 | Emergency (ER) | payer MEDICAID ==
[~2018-12-11] VITALS: Ht 165.1 cm; Wt 83.2 kg
[2018-12-11 08:51] VITALS: Ht 165.1 cm; Wt 83.2 kg
[2018-12-11 11:18] VITALS: BP 121/73
== END 2018-12-11 11:19 | disposition home or self-care (01) ==
LOC: D.ER 08:46
DX: S16.1XXA Strain of muscle, fascia and tendon at neck level, initial encounter (principal); X58.XXXA Exposure to other specified factors, initial encounter; F17.210 Nicotine dependence, cigarettes, uncomplicated

== ENCOUNTER 2019-01-11 08:01 | Emergency (ER) | payer MEDICAID ==
[~2019-01-11] VITALS: Ht 165.1 cm; Wt 83.6 kg
[2019-01-11 08:04] VITALS: Ht 165.1 cm; Wt 83.6 kg
[2019-01-11] MEDS ORDERED: ACETAMINOPHEN500 M1 PO (10:47)
[2019-01-11] MEDS ORDERED: CYCLOBENZAPRINE10 MG PO (10:47)
[2019-01-11] MEDS ORDERED: IBUPROFEN800 MG PO (10:47)
[2019-01-11 11:09] VITALS: BP 140/88
== END 2019-01-11 11:11 | disposition home or self-care (01) ==
LOC: D.ER 08:01
DX: S70.01XA Contusion of right hip, initial encounter (principal); W19.XXXA Unspecified fall, initial encounter

== ENCOUNTER 2019-01-11 20:10 | Emergency (ER) | payer MEDICAID ==
[~2019-01-11] VITALS: Ht 165.1 cm; Wt 839.5 kg
[~2019-01-11 20:10] MED LIST changes: +ACETAMINOPHEN500 M1 PO
[2019-01-11 20:16] VITALS: Ht 165.1 cm; Wt 839.5 kg
[2019-01-11 21:31] VITALS: BP 150/110
== END 2019-01-11 21:31 | disposition home or self-care (01) ==
LOC: D.ER 20:10
DX: M54.30 Sciatica, unspecified side (principal); F17.210 Nicotine dependence, cigarettes, uncomplicated

== ENCOUNTER 2019-01-13 09:32 | Emergency (ER) | payer MEDICAID ==
[~2019-01-13] VITALS: Ht 165.1 cm; Wt 83.6 kg
[2019-01-13 09:53] VITALS: Ht 165.1 cm; Wt 83.6 kg
[2019-01-13 11:14] VITALS: BP 142/95
[2019-01-13] MEDS ORDERED: ADDERALL 20 MG20 M1 PO (21:18)
[2019-01-13] MEDS ORDERED: KLONOPIN0.5 MG PO (21:18)
== END 2019-01-13 11:15 | disposition home or self-care (01) ==
LOC: D.ER 09:32
DX: G43.909 Migraine, unspecified, not intractable, without status migrainosus (principal)

== ENCOUNTER 2019-01-13 21:07 | Emergency (ER) | payer MEDICAID ==
[~2019-01-13] VITALS: Ht 165.1 cm; Wt 83.6 kg
[2019-01-13 21:16] VITALS: Ht 165.1 cm; Wt 83.6 kg
[2019-01-13] MEDS ORDERED: ADDERALL 20 MG20 M1 PO (21:18)
[2019-01-13] MEDS ORDERED: KLONOPIN0.5 MG PO (21:18)
[2019-01-13 22:39] VITALS: BP 125/82
== END 2019-01-13 22:43 | disposition home or self-care (01) ==
LOC: D.ER 21:07
DX: R51 Headache (principal); M25.552 Pain in left hip; Z76.5 Malingerer [conscious simulation]

== ENCOUNTER 2019-01-30 16:00 | Emergency (ER) | payer MEDICAID ==
[~2019-01-30] VITALS: Ht 165.1 cm; Wt 83.6 kg
[~2019-01-30 16:00] MED LIST changes: +KLONOPIN0.5 MG PO
[2019-01-30 16:15] VITALS: Ht 165.1 cm; Wt 83.6 kg
[2019-01-30] MEDS ORDERED: LYRICA50 MG PO (16:16)
[2019-01-30] MEDS ORDERED: PERCOCET 5-3251 TAB PO (16:17)
[2019-01-30 16:54] LABS: BASOPHILS 0.8 % (0-2); EOSINOPHILS 3.2 % (0-7); HEMATOCRIT 44.2 % (36.0-48.0); HEMOGLOBIN 15.3 g/dL (12-16); IMMATURE GRANULOCYTES 0.3 % (0-5); LYMPHOCYTES 27.1 % (15-50); MCHC 34.6 g/dL (31.0-37.0); MCV 95.5 fL (80.0-100.0); MEAN PLATELET VOLUME 11.4 fL (7.4-10.4); MONOCYTES 9.2 % (2-11); NEUTROPHILS 59.4 % (40-80); RBC 4.63 10x6/uL (4.00-5.40); RDW 14.1 % (11.5-14.5); WBC 10.2 10x3/uL (4.8-10.8)
[2019-01-30 16:59] LABS: PLATELET COUNT 181 10x3/uL (130-400)
[2019-01-30 17:00] LABS: APPEARANCE CLEAR (CLEAR); BILIRUBIN NEGATIVE (NEGATIVE); COLOR DK YELLOW (YELLOW); GLUCOSE NEGATIVE (NEGATIVE); KETONE NEGATIVE (NEGATIVE); NITRITE NEGATIVE (NEGATIVE); PROTEIN NEGATIVE (NEGATIVE); UROBILINOGEN NORMAL (NORMAL)
[2019-01-30 17:16] LABS: CALC OSMOLALITY 273 mosm/kg (275-300); CALCIUM 8.4 mg/dL (8.5-10.1); CARBON DIOXIDE 30.1 mmol/L (21.0-32.0); CHLORIDE - SERUM 102 mmol/L (98-107); CREATININE - SERUM 0.6 mg/dL (0.6-1.3); GLUCOSE 108 mg/dL (74-106); POTASSIUM - SERUM 3.9 mmol/L (3.5-5.1); SODIUM 138 mmol/L (136-145); UREA NITROGEN 5 mg/dL (7-18); eGFR NON AFRICAN AMERICAN > 90 mL/min (90-120)
[2019-01-30 17:26] LABS: ALKALINE PHOSPHATASE 362 U/L (46-116); ALT (SGPT) 410 U/L (10-68); AMYLASE - SERUM 24 U/L (25-115); BILIRUBIN - TOTAL 5.02 mg/dL (0.2-1.3); LIPASE 223 U/L (73-393); TROPONIN-I < 0.017 ng/mL (0.000-0.060)
[2019-01-30 19:06] LABS: UDS - AMPHET POSITIVE QUAL (NEGATIVE); UDS - BARB NEGATIVE QUAL (NEGATIVE); UDS - BENZO NEGATIVE QUAL (NEGATIVE); UDS - COCAINE NEGATIVE QUAL (NEGATIVE); UDS - OPIATE NEGATIVE QUAL (NEGATIVE); UDS - PCP NEGATIVE QUAL (NEGATIVE); UDS - THC NEGATIVE QUAL (NEGATIVE)
[2019-01-30 22:27] VITALS: BP 141/86
[2019-02-01 13:10] LABS: HEPATITIS C ANTIBODY 0.1 S/CO RAT (0.0-0.9)
== END 2019-01-30 22:27 | disposition home or self-care (01) ==
LOC: D.ER 16:00
PROVIDERS: Family Medicine
DX: R11.2 Nausea with vomiting, unspecified (principal); R10.9 Unspecified abdominal pain; F15.90 Other stimulant use, unspecified, uncomplicated; F17.210 Nicotine dependence, cigarettes, uncomplicated; R94.5 Abnormal results of liver function studies

== ENCOUNTER 2019-02-03 18:52 | Emergency (ER) | payer MEDICAID ==
[~2019-02-03] VITALS: Ht 165.1 cm; Wt 83.6 kg
[~2019-02-03 18:52] MED LIST changes: +LYRICA50 MG PO
[2019-02-03 18:59] VITALS: Ht 165.1 cm; Wt 83.6 kg
[2019-02-03 19:28] LABS: BASOPHILS 0.1 % (0-2); EOSINOPHILS 0.1 % (0-7); HEMATOCRIT 44.8 % (36.0-48.0); HEMOGLOBIN 15.4 g/dL (12-16); IMMATURE GRANULOCYTES 0.6 % (0-5); LYMPHOCYTES 10.9 % (15-50); MCH 33.2 pg (26.0-34.0); MCHC 34.4 g/dL (31.0-37.0); MCV 96.6 fL (80.0-100.0); MEAN PLATELET VOLUME 11.4 fL (7.4-10.4); MONOCYTES 9.4 % (2-11); NEUTROPHILS 78.9 % (40-80); RBC 4.64 10x6/uL (4.00-5.40); RDW 15.2 % (11.5-14.5); WBC 14.1 10x3/uL (4.8-10.8)
[2019-02-03 19:29] LABS: PLATELET COUNT 309 10x3/uL (130-400)
[2019-02-03 19:36] LABS: CALC OSMOLALITY 278 mosm/kg (275-300); CALCIUM 8.1 mg/dL (8.5-10.1); CARBON DIOXIDE 24.5 mmol/L (21.0-32.0); CHLORIDE - SERUM 104 mmol/L (98-107); CREATININE - SERUM 0.6 mg/dL (0.6-1.3); GLUCOSE 133 mg/dL (74-106); INR 0.96 (0.85-1.17); PROTIME 12.3 SECONDS (11.6-15.0); SODIUM 138 mmol/L (136-145); UREA NITROGEN 14 mg/dL (7-18); eGFR NON AFRICAN AMERICAN > 90 mL/min (90-120)
[2019-02-03 19:51] LABS: ALBUMIN 3.1 g/dL (3.4-5.0); ALKALINE PHOSPHATASE 380 U/L (46-116); ALT (SGPT) 964 U/L (10-68); BILIRUBIN - TOTAL 7.66 mg/dL (0.2-1.3); LIPASE 1168 U/L (73-393); PRO BNP 70 pg/mL (0-125); PROTEIN - SERUM 6.8 g/dL (6.4-8.2)
[2019-02-03 21:45] LABS: APPEARANCE CLEAR (CLEAR); BILIRUBIN 3+ (NEGATIVE); COLOR YELLOW (YELLOW); GLUCOSE NEGATIVE (NEGATIVE); KETONE NEGATIVE (NEGATIVE); NITRITE NEGATIVE (NEGATIVE); PROTEIN NEGATIVE (NEGATIVE); SPECIFIC GRAVITY 1.015 (1.005-1.020)
[2019-02-03 21:52] LABS: UDS - AMPHET POSITIVE QUAL (NEGATIVE); UDS - BARB NEGATIVE QUAL (NEGATIVE); UDS - BENZO NEGATIVE QUAL (NEGATIVE); UDS - COCAINE NEGATIVE QUAL (NEGATIVE); UDS - OPIATE POSITIVE QUAL (NEGATIVE); UDS - PCP NEGATIVE QUAL (NEGATIVE); UDS - THC NEGATIVE QUAL (NEGATIVE)
[2019-02-03 22:39] VITALS: BP 131/74
== END 2019-02-03 22:41 | disposition short-term general hospital (02) ==
LOC: D.ER 18:52
PROVIDERS: Family Medicine
DX: R94.5 Abnormal results of liver function studies (principal)

== ENCOUNTER 2019-02-09 15:45 | Emergency (ER) | payer MEDICAID ==
[~2019-02-09] VITALS: Ht 165.1 cm; Wt 83.6 kg
[2019-02-09 15:48] VITALS: Ht 165.1 cm; Wt 83.6 kg
[2019-02-09 16:18] LABS: BASOPHILS 0.3 % (0-2); EOSINOPHILS 0.6 % (0-7); HEMATOCRIT 42.5 % (36.0-48.0); HEMOGLOBIN 14.7 g/dL (12-16); IMMATURE GRANULOCYTES 0.8 % (0-5); LYMPHOCYTES 18.3 % (15-50); MCHC 34.6 g/dL (31.0-37.0); MCV 95.5 fL (80.0-100.0); MEAN PLATELET VOLUME 11.4 fL (7.4-10.4); MONOCYTES 7.6 % (2-11); NEUTROPHILS 72.4 % (40-80); PLATELET COUNT 358 10x3/uL (130-400); RBC 4.45 10x6/uL (4.00-5.40); RDW 16.8 % (11.5-14.5); WBC 13.2 10x3/uL (4.8-10.8)
[2019-02-09 16:30] LABS: CALC OSMOLALITY 272 mosm/kg (275-300); CALCIUM 8.3 mg/dL (8.5-10.1); CARBON DIOXIDE 24.7 mmol/L (21.0-32.0); CHLORIDE - SERUM 100 mmol/L (98-107); CREATININE - SERUM 0.7 mg/dL (0.6-1.3); GLUCOSE 150 mg/dL (74-106); POTASSIUM - SERUM 4.3 mmol/L (3.5-5.1); SODIUM 135 mmol/L (136-145); UREA NITROGEN 12 mg/dL (7-18); eGFR NON AFRICAN AMERICAN > 90 mL/min (90-120)
[2019-02-09 16:46] LABS: ALBUMIN 2.8 g/dL (3.4-5.0); ALKALINE PHOSPHATASE 216 U/L (46-116); ALT (SGPT) 1679 U/L (10-68); BILIRUBIN - DIRECT 9.42 mg/dL (0.00-0.30); BILIRUBIN - INDIRECT 2.44 mg/dL (0.00-1.00); BILIRUBIN - TOTAL 11.86 mg/dL (0.2-1.3); PROTEIN - SERUM 6.7 g/dL (6.4-8.2)
[2019-02-09 19:28] VITALS: BP 142/86
== END 2019-02-09 19:24 | disposition home or self-care (01) ==
LOC: D.ER 15:45
PROVIDERS: Family Medicine
DX: B19.20 Unspecified viral hepatitis C without hepatic coma (principal); F17.210 Nicotine dependence, cigarettes, uncomplicated

== ENCOUNTER 2019-02-11 20:35 | Emergency (ER) | payer MEDICAID ==
[~2019-02-11] VITALS: Ht 165.1 cm; Wt 86.2 kg
[2019-02-11 20:47] VITALS: Ht 165.1 cm; Wt 86.2 kg
[2019-02-11 21:27] LABS: BASOPHILS 0.6 % (0-2); EOSINOPHILS 0.8 % (0-7); HEMOGLOBIN 13.2 g/dL (12-16); LYMPHOCYTES 15.5 % (15-50); MCH 32.9 pg (26.0-34.0); MCHC 34.7 g/dL (31.0-37.0); MCV 94.8 fL (80.0-100.0); MEAN PLATELET VOLUME 11.5 fL (7.4-10.4); MONOCYTES 14.9 % (2-11); NEUTROPHILS 67.2 % (40-80); PLATELET COUNT 362 10x3/uL (130-400); RBC 4.01 10x6/uL (4.00-5.40); RDW 17.3 % (11.5-14.5); WBC 13.3 10x3/uL (4.8-10.8)
[2019-02-11 21:32] LABS: APPEARANCE CLEAR (CLEAR); BILIRUBIN 2+ (NEGATIVE); COLOR DK YELLOW (YELLOW); GLUCOSE NEGATIVE (NEGATIVE); KETONE NEGATIVE (NEGATIVE); NITRITE NEGATIVE (NEGATIVE); PROTEIN TRACE mg/dL (NEGATIVE); SPECIFIC GRAVITY 1.015 (1.005-1.020); UROBILINOGEN NORMAL (NORMAL)
[2019-02-11 21:34] LABS: BACTERIA FEW /hpf (NEGATIVE); EPITHELIAL CELLS 0-5 /hpf (0-5); HCG URINE NEGATIVE (NEGATIVE); RED CELLS - URINE 0-5 /hpf (0-5); WHITE CELLS - URINE RARE /hpf (NEGATIVE)
[2019-02-11 21:35] LABS: CALC OSMOLALITY 278 mosm/kg (275-300); CALCIUM 8.2 mg/dL (8.5-10.1); CHLORIDE - SERUM 105 mmol/L (98-107); CREATININE - SERUM 0.5 mg/dL (0.6-1.3); GLUCOSE 109 mg/dL (74-106); POTASSIUM - SERUM 4.1 mmol/L (3.5-5.1); SODIUM 139 mmol/L (136-145); UREA NITROGEN 12 mg/dL (7-18); eGFR NON AFRICAN AMERICAN > 90 mL/min (90-120)
[2019-02-11 21:43] LABS: UDS - AMPHET NEGATIVE QUAL (NEGATIVE); UDS - BARB NEGATIVE QUAL (NEGATIVE); UDS - BENZO NEGATIVE QUAL (NEGATIVE); UDS - COCAINE NEGATIVE QUAL (NEGATIVE); UDS - OPIATE POSITIVE QUAL (NEGATIVE); UDS - PCP NEGATIVE QUAL (NEGATIVE); UDS - THC NEGATIVE QUAL (NEGATIVE)
[2019-02-11 21:47] LABS: ALBUMIN 2.7 g/dL (3.4-5.0); ALKALINE PHOSPHATASE 157 U/L (46-116); AMYLASE - SERUM 27 U/L (25-115); BILIRUBIN - TOTAL 9.64 mg/dL (0.2-1.3); LIPASE 189 U/L (73-393); PROTEIN - SERUM 6.2 g/dL (6.4-8.2)
[2019-02-11 21:57] LABS: ALT (SGPT) 1666 U/L (10-68); TROPONIN-I < 0.017 ng/mL (0.000-0.060)
[2019-02-11] MEDS ORDERED: OXYCODONE HCL5 M1 PO (22:09)
[2019-02-11 23:01] VITALS: BP 153/92
== END 2019-02-11 23:01 | disposition home or self-care (01) ==
LOC: D.ER 20:35
PROVIDERS: Emergency Medicine
DX: B17.10 Acute hepatitis C without hepatic coma (principal); R10.9 Unspecified abdominal pain; M13.88 Other specified arthritis, other site

== ENCOUNTER 2019-07-18 17:13 | Emergency (ER) | payer OTHER ==
[~2019-07-18] VITALS: Ht 165.1 cm; Wt 77.3 kg
[~2019-07-18 17:13] MED LIST changes: +FLUTICASONE PRO16 GM NASAL; +OXYCODONE HCL5 M1 PO
[2019-07-18 17:30] VITALS: Ht 165.1 cm; Wt 77.3 kg
[2019-07-18] MEDS ORDERED: CYCLOBENZAPRINE10 MG PO (20:00)
[2019-07-18 20:30] VITALS: BP 143/104
== END 2019-07-18 21:51 | disposition home or self-care (01) ==
LOC: D.ER 17:13
DX: G89.29 Other chronic pain (principal); M54.5 Low back pain; S16.1XXA Strain of muscle, fascia and tendon at neck level, initial encounter; S43.402A Unspecified sprain of left shoulder joint, initial encounter; V89.2XXA Person injured in unspecified motor-vehicle accident, traffic, initial encounter; Y93.9 Activity, unspecified; Y92.9 Unspecified place or not applicable